=== PATIENT | male | born 1950 | race Two or more races ===

== ENCOUNTER 2018-11-29 01:39 | Inpatient (IN) | payer MEDICARE, MEDICAID ==
[~2018-11-29] VITALS: Ht 177.8 cm; Wt 96.6 kg
[2018-11-29] MEDS ORDERED: LISI10TA5 PO (01:57)
[2018-11-29] MEDS ORDERED: LEVE500T9 PO (01:57)
[2018-11-29] MEDS ORDERED: DONE5TAB7 PO (01:57)
[2018-11-29] MEDS ORDERED: MAGN400O21 PO (01:57)
[2018-11-29] MEDS ORDERED: ACET-868 PO (01:57)
[2018-11-29] MEDS ORDERED: DOCU100C36 PO (01:57)
--- NOTE | 2018-11-29 01:59 | NUR ---
IVORY, C/O "AGGRESSIVE WITH STAFF, THROWING CHAIRS AT STAFF" AOXA, -SI, -HI VSS AMBULATORY, PLACED ON ER BED 3, AWAITING FOR EVAL.
[2018-11-29 02:08] LABS: APPEARANCE,URINE Clear (CLEAR); BILIRUBIN,URINE Negative (NEGATIVE); BLOOD, URINE Moderate Ery/uL (NEGATIVE); COLOR,URINE Yellow (YELLOW); KETONES,URINE Negative (NEGATIVE); LEUKOCYTE ESTERASE ,URINE Small (NEGATIVE); NITRITE, URINE Negative (NEGATIVE); PROTEIN,URINE 30 mg/dl (NEGATIVE); UGLUCOSE Negative (NEGATIVE); UROBILINOGEN,URINE 0.2 EU/dL (0.2)
[2018-11-29 02:13] LABS: BASOPHILS % (AUTO) 0.4 % (0.0-2.0); HEMATOCRIT 39 % (39-51); HEMOGLOBIN 13.2 g/dL (13.5-17.5); LYMPHOCYTES # (AUTO) 2.5 /CMM (0.8-4.8); LYMPHOCYTES % (AUTO) 28.2 % (20.0-44.0); MEAN CORPUSCULAR HGB CONC 34 g/dl (31.0-36.0); MEAN CORPUSCULAR VOLUME 91 fL (80-96); MONOCYTES # (AUTO) 0.7 /CMM (0.1-1.30); MONOCYTES % (AUTO) 8.1 % (2.0-12.0); NEUTROPHILS # (AUTO) 5.4 /CMM (1.8-8.9); NEUTROPHILS % (AUTO) 61.3 % (43.0-81.0); PLATELET COUNT (AUTO) 259 /CMM (150-450); RED BLOOD CELL COUNT(AUTO) 4.22 MIL/uL (4.5-6.0); WHITE BLOOD COUNT (AUTO) 8.8 K/uL (4.3-11.0)
[2018-11-29 02:19] LABS: CALCIUM, SERUM 8.7 mg/dL (8.5-10.1); CARBON DIOXIDE 26 mmol/L (21-32); CHLORIDE 105 mmol/L (98-107); CREATININE 1.3 mg/dL (0.6-1.3); GLUCOSE 125 mg/dL (74-106); POTASSIUM 4.1 mmol/L (3.5-5.1); SODIUM SERUM 142 mmol/L (136-145); UREA NITROGEN, BLOOD 24 mg/dL (7-18)
[2018-11-29 02:20] LABS: BACTERIA,URINE Few /HPF (None Seen); CALCIUM OXALATE CRYSTALS,UR Moderate /HPF (None Seen); RBC,URINE 51-80 /HPF (0-2); SQUAMOUS EPITHELIAL CELL,UR Rare /HPF (None Seen); WBC,URINE 21-50 /HPF (0-3)
[2018-11-29 02:23] LABS: ACETAMINOPHEN 0 ug/ml (10-30); ALANINE AMINOTRANSFERASE 22 U/L (12-78); ALBUMIN 3.3 g/dL (3.4-5.0); ALCOHOL, BLOOD < 3 mg/dL (0-0); ALKALINE PHOSPHATASE 84 U/L (46-116); ASPARTATE AMINOTRANSFERASE 20 U/L (15-37); BILIRUBIN,DIRECT 0.1 mg/dL (0.0-0.2); BILIRUBIN,TOTAL 0.3 mg/dL (0.2-1.0); TOTAL PROTEIN, SERUM 6.5 g/dL (6.4-8.2)
--- NOTE | 2018-11-29 03:06 | NUR ---
PT ASLEEP IN BED,VSS, SAFETY PRECAUTION UNDER TAKEN, WILL CONT' TO MONITOR.
--- NOTE | 2018-11-29 04:40 | NUR ---
CALLED FOR REPORT, GIVEN TO [facility] CHARGE NURSE, PT GOING TO RM 214.
--- NOTE | 2018-11-29 05:52 | NUR ---
ADMISSION NOTES: ADMITTED THIS 72 Y/O MALE PATIENT ADMIT FROM [facility] ER/INTIALLY FROM [facility] , PT IS ON 5150 HOLD GRAVELY DISABLE , PER HOLD PT. DISORIENTED ,CONFUSED AND DISORGNIZED, PT. AGITAED NON COMPLY WITH CARE , UPON FACE TO FACE ASSESSMENT PATIENT IS A&O X ,1 DISORGNIZED ANXIOUS UNCOOPERTIVE, EASILY GETS AGITATED, PT. IS POOR HISTORIAN, POOR INSIGHT ,POOR JUDGEMENT , POOR HYGINE , PT. REFUSED TO TAKE SHOWER AT THIS TIME , AND PT. REFUSED TO SIGN ADMISSION PAPERS AND ID PICTURES TAKEN FOR CHART ,V/S WNL , AWARE AND NOTIFIED OF THE ADMISSION, PT. REFUSED SKIN ASSESSMENT AND REFUSED MRSA SWAB FROM NARES ,ENCOURAGED X3 STILL REFUSED, BELONGINGS CONTRABAND WERE DONE , NURSING ASSESSMENT DONE ,PT. RIGHTS DISCUSS BY DIRECTOR OF PAYROLL , PROVIDE THE PT. WITH HANDBOOK, AND MEDICATIONS GUIDE, ENVIRONMENTAL SAFETY CHECK DONE, ENCOURAGED PT. VERBALIZED ANY FEELING CONCERN TO STAFF, ORIENT TO UNIT POLICY, NO ACUTE DISTRESS NOTED,VITAL SIGNS WNL ,DENIES ANY PAIN AT THIS TIME ,WILL CONTINUE TO MONITOR FOR Q15 SAFETY AND BEHAVIOR.
[2018-11-29] MEDS ORDERED: ACETAMINOPHEN 325 MG TABLET PO PRN ×2 (06:00→13:30)
[2018-11-29] MEDS ORDERED: MAGNESIUM HYDROXIDE 30 ML UDC PO PRN ×2 (06:00→13:30)
[2018-11-29] MEDS ORDERED: MAG HYDROX/AL HYDROX/SIMETH 30 ML UDC PO PRN (06:00)
[2018-11-29] MEDS ORDERED: LORAZEPAM 0.5 MG TABLET PO PRN (06:00)
[2018-11-29 06:18] VITALS: BP 130/78
--- NOTE | 2018-11-29 06:49 | NUR ---
GPS RN NOTES : PT. REFUSED SKIN ASSESSMENT ,PT. REUSED TO CHECK BLOOD SUGAR FOR ADMISSION PROCESS, AND REFUSED MRSA NARES ,ENCOURAGE X3 , EXPLINED RISKS AND BENEFITS STILL REFUSED , ENDORSE TO DAY NURSE FOR CONTINUITY OF CARE,
--- NOTE | 2018-11-29 06:54 | NUR ---
GPS RN NOTES: CALLED AND NOTIFIED PT. FAMILY MEMBER AGAPITO DELEON # [phone].
[2018-11-29] MEDS ORDERED: INSU100I4 SQ (07:16)
[2018-11-29 08:00] VITALS: BP 117/78
--- NOTE | 2018-11-29 09:21 | NUR ---
WOUND CARE CONSULT: PT PRESENTS WITH RT ELBOW SKIN TEAR, PRESENT ON ADMISSION. PT DENIED NEED FOR FULL SKIN ASSESSMENT. PT IS CONTINENT AND AMBULATORY. WILL SEE PRN. RECOMMENDATIONS MADE FOR WOUND CARE. DISCUSSED WITH NURSING STAFF. IN AGREEMENT WITH PLAN OF CARE. Addendum: 11/29/18 at 0922 by RACHELLE PHAM WNDNU Amended: Links added.
[2018-11-29] MEDS ORDERED: Z GUARD REMEDY 2 OZ OINT TP PRN (09:30)
--- NOTE | 2018-11-29 10:29 | NUR ---
ARTURO contacted Kiya ([phone]) from [facility] and confirmed that the pt can return to the facility at the time of discharge.
--- NOTE | 2018-11-29 10:45 | NUR ---
SW called the pts daughter, Mary ([phone]), and left a voicemail stating that the SW would like to discuss the pts initial discharge plan and treatment plan. SW will attempt to call back.
--- NOTE | 2018-11-29 11:00 | NUR ---
Initial Discharge Plan: Pt currently resides at [facility] located at [address] [place] [address]; ([phone]). Per facility (Kiya), the pt can return to the facility. SW will work with the pt and the MD regarding appropriate discharge planning. SW will form a safe and proper discharge.
--- NOTE | 2018-11-29 11:10 | NUR ---
Pts daughter, Mary ([phone]), returned the call of the SW. SW informed the daughter that the pt can return to [facility] and she stated that she approves of the placement. SW also informed her about the average length of inpatient stay and the psychiatrist that the pt will be under the care of. SW informed the daughter that she would keep her updated on the discharge plan.
--- NOTE | 2018-11-29 13:00 | NUR ---
wd nurse in documented skin tear to rt. elbow.
[2018-11-29] MEDS: DIVALPROEX SODIUM 125 MG CAP.SPRINK PO SCH ×2 (14:10→18:00)
--- NOTE | 2018-11-29 14:35 | NUR ---
Group Note: Pt was encouraged to participate in group therapy at 11/29/18 at 1:30PM but the pt stated that he was not that interested and remained in his room.
--- NOTE | 2018-11-29 15:02 | NUR ---
photo taken of rt. elbow-dressing to site. refused to sign med papers.dr. mcintyre in to see pt. [facility] home assessment nurse contacted regarding med recon sheet and the fact that pt. is diabetic.
[2018-11-29 16:00] VITALS: BP 119/63
[2018-11-29] MEDS: DOCUSATE SODIUM 100 MG CAPSULE PO SCH (18:00)
[2018-11-29 20:00] VITALS: BP 114/82
[2018-11-29] MEDS: LEVETIRACETAM SOL (5 ML) 100 MG/ML UDC PO SCH (21:27)
[2018-11-29] MEDS: QUETIAPINE FUMARATE 25 MG TABLET PO SCH (21:27)
[2018-11-29] MEDS: DONEPEZIL 5 MG TABLET PO SCH (21:27)
--- NOTE | 2018-11-29 23:29 | NUR ---
Paged and spoke with Dr. tanna Deluna, Re: abnormal urine result. New order given for Keflex 500 mg po tid
[2018-11-30] MEDS: CEPHALEXIN MONOHYDRATE 500 MG CAPSULE PO SCH ×4 (00:15→18:04)
[2018-11-30 07:19] LABS: BASOPHILS % (AUTO) 0.4 % (0.0-2.0); EOSINOPHILS % (AUTO) 2.3 % (0.0-6.0); HEMATOCRIT 41 % (39-51); LYMPHOCYTES # (AUTO) 2.1 /CMM (0.8-4.8); LYMPHOCYTES % (AUTO) 36.4 % (20.0-44.0); MEAN CORPUSCULAR HGB CONC 34 g/dl (31.0-36.0); MEAN CORPUSCULAR VOLUME 90 fL (80-96); MONOCYTES # (AUTO) 0.4 /CMM (0.1-1.30); MONOCYTES % (AUTO) 6.8 % (2.0-12.0); NEUTROPHILS # (AUTO) 3.1 /CMM (1.8-8.9); NEUTROPHILS % (AUTO) 54.1 % (43.0-81.0); PLATELET COUNT (AUTO) 253 /CMM (150-450); RED BLOOD CELL COUNT(AUTO) 4.52 MIL/uL (4.5-6.0); WHITE BLOOD COUNT (AUTO) 5.7 K/uL (4.3-11.0)
[2018-11-30 07:33] LABS: ALBUMIN 3.1 g/dL (3.4-5.0); BILIRUBIN,TOTAL 0.4 mg/dL (0.2-1.0); CALCIUM, SERUM 8.3 mg/dL (8.5-10.1); CREATININE 1.1 mg/dL (0.6-1.3); POTASSIUM 3.9 mmol/L (3.5-5.1); TOTAL PROTEIN, SERUM 6.5 g/dL (6.4-8.2)
[2018-11-30 07:44] LABS: CHOLESTEROL 151 mg/dL (<200); HDL CHOLESTEROL 38 mg/dL (40-60); LDL 93 mg/dL (0-99); TRIGLYCERIDES 114 mg/dL (30-150)
[2018-11-30 08:00] VITALS: BP 119/66
[2018-11-30] MEDS: DIVALPROEX SODIUM 125 MG CAP.SPRINK PO SCH ×3 (08:59→18:04)
[2018-11-30] MEDS: LEVETIRACETAM SOL (5 ML) 100 MG/ML UDC PO SCH ×2 (08:59→21:00)
[2018-11-30] MEDS: DOCUSATE SODIUM 100 MG CAPSULE PO SCH ×2 (08:59→18:05)
[2018-11-30] MEDS: LISINOPRIL (10MG) 10 MG TABLET PO SCH (08:59)
--- NOTE | 2018-11-30 14:37 | NUR ---
more isolative today than yesterday.
[2018-11-30 16:00] VITALS: BP 131/79
[2018-11-30 19:39] VITALS: BP 100/59
[2018-11-30] MEDS: QUETIAPINE FUMARATE 25 MG TABLET PO SCH (20:00)
--- NOTE | 2018-11-30 20:42 | NUR ---
GPS RN NOTE: RECEIVED HGBA1C RESULT OF 7.0, NOTIFIED DR. KELLER WITH ORDER GIVEN NOTED AND CARRIED OUT.
[2018-11-30] MEDS ORDERED: DEXTROSE 50%-WATER 50 ML DISP.SYRIN IV PRN (21:00)
[2018-11-30] MEDS: DONEPEZIL 5 MG TABLET PO SCH (21:11)
--- NOTE | 2018-11-30 21:13 | NUR ---
GPS RN NOTE: PATIENT REFUSED PM MEDICATIONS, EXPLAINED THE RISK AND BENEFITS X 3 ATTEMPTS, PER PATIENT "I DONT REMEMBER TAKING THAT MEDICATION, SO I REFUSED" PATIENT STARTED TO GET AGITATED, REDIRECTED THE PATIENT, PATIENT CALMED DOWN BUT STILL REFUSED MEDICATIONS. WILL CONTINUE TO MONITOR
[2018-11-30] MEDS: BLOOD SUGAR DIAGNOSTIC 1 EACH STRIP IN SCH (21:16)
[2018-12-01 08:00] VITALS: BP 119/72
[2018-12-01] MEDS: BLOOD SUGAR DIAGNOSTIC 1 EACH STRIP IN SCH ×4 (08:26→21:19)
[2018-12-01] MEDS: DOCUSATE SODIUM 100 MG CAPSULE PO SCH ×2 (08:35→17:54)
[2018-12-01] MEDS: CEPHALEXIN MONOHYDRATE 500 MG CAPSULE PO SCH ×3 (08:35→17:54)
[2018-12-01] MEDS: LISINOPRIL (10MG) 10 MG TABLET PO SCH (08:35)
[2018-12-01] MEDS: DIVALPROEX SODIUM 125 MG CAP.SPRINK PO SCH ×3 (08:35→17:54)
[2018-12-01] MEDS: LEVETIRACETAM SOL (5 ML) 100 MG/ML UDC PO SCH ×2 (08:36→21:00)
[2018-12-01 13:00] VITALS: BP 110/56
[2018-12-01] MEDS: QUETIAPINE FUMARATE 25 MG TABLET PO SCH (19:43)
[2018-12-01 20:00] VITALS: BP 119/72
[2018-12-01] MEDS: INSULIN REGULAR, HUMAN 100 UNIT/ML 3 ML VIAL SQ PRN (21:19)
[2018-12-01] MEDS: DONEPEZIL 5 MG TABLET PO SCH (21:19)
--- NOTE | 2018-12-01 21:22 | NUR ---
PT. REFUSED PM MEDICATIONS: KEPPRA, AND ARICEPT. RISKS AND BENEFITS MADE AWARE. ENCOURAGED MEDICATIONS X3, PT STILL REFUSED. WILL CONT TO MONITOR.
--- NOTE | 2018-12-01 21:52 | NUR ---
ATTEMPTED TO TAKE PROGRESS PHOTOS OF BODY CHECK. PT REFUSED ASSESSMENT. RISKS AND BENEFITS MADE AWARE. VERBALIZATION OF UNDERSTANDING. WILL CONT. TO MONITOR.
[2018-12-02 08:00] VITALS: BP 104/66
[2018-12-02] MEDS: BLOOD SUGAR DIAGNOSTIC 1 EACH STRIP IN SCH ×4 (08:18→22:00)
[2018-12-02] MEDS: DOCUSATE SODIUM 100 MG CAPSULE PO SCH ×2 (08:19→16:43)
[2018-12-02] MEDS: DIVALPROEX SODIUM 125 MG CAP.SPRINK PO SCH ×3 (08:20→16:43)
[2018-12-02] MEDS: CEPHALEXIN MONOHYDRATE 500 MG CAPSULE PO SCH ×3 (08:20→16:43)
[2018-12-02] MEDS: LEVETIRACETAM SOL (5 ML) 100 MG/ML UDC PO SCH ×2 (08:21→21:14)
[2018-12-02] MEDS: LISINOPRIL (10MG) 10 MG TABLET PO SCH (08:23)
[2018-12-02] MEDS: INSULIN REGULAR, HUMAN 100 UNIT/ML 3 ML VIAL SQ PRN ×2 (12:18→23:05)
[2018-12-02 16:00] VITALS: BP 120/64
--- NOTE | 2018-12-02 16:30 | NUR ---
Group note: Pt attended a group session on 12/02/18 at 3PM discussing depression and how it has impacted their life. S: Pt stated, My feelings of depression come and they go but you just have to keep moving on and keep living. O: Pt was present during the group session and was engaged. Pt appeared to be in a euthymic mood and presented with a calm affect. Pt maintained appropriate eye contact and had an appropriate tone of voice. A: Pt expressed that he does not think that depression needs to affect someones life completely because it can be managed and dealt with for a while and it does not need to be a constant. Pt expressed that he believes help is available and that people have to use it to stay in a place where they can manage their lives. P: Pt will continue milieu treatment and medication stabilization.
[2018-12-02 19:47] VITALS: BP 128/71
[2018-12-02] MEDS: QUETIAPINE FUMARATE 25 MG TABLET PO SCH (21:14)
[2018-12-02] MEDS: DONEPEZIL 5 MG TABLET PO SCH (21:14)
[2018-12-02] MEDS: TEMAZEPAM 7.5 MG CAPSULE PO PRN (21:14)
[2018-12-03 08:00] VITALS: BP 110/53
[2018-12-03] MEDS: BLOOD SUGAR DIAGNOSTIC 1 EACH STRIP IN SCH ×4 (08:21→22:09)
[2018-12-03] MEDS: LISINOPRIL (10MG) 10 MG TABLET PO SCH (09:00)
[2018-12-03] MEDS: CEPHALEXIN MONOHYDRATE 500 MG CAPSULE PO SCH ×3 (09:08→17:19)
[2018-12-03] MEDS: DOCUSATE SODIUM 100 MG CAPSULE PO SCH ×3 (09:08→17:19)
[2018-12-03] MEDS: LEVETIRACETAM SOL (5 ML) 100 MG/ML UDC PO SCH ×2 (09:08→21:34)
[2018-12-03] MEDS: DIVALPROEX SODIUM 125 MG CAP.SPRINK PO SCH ×4 (09:08→17:19)
[2018-12-03] MEDS: INSULIN REGULAR, HUMAN 100 UNIT/ML 3 ML VIAL SQ PRN ×3 (09:20→17:40)
--- NOTE | 2018-12-03 12:16 | NUR ---
SW called the pts daughter, Mary ([phone]), and left her a voicemail that stated that there is no discharge date yet.
--- NOTE | 2018-12-03 15:59 | NUR ---
CONFUSED AND GETTING TURNED AROUND ON UNIT. ASKED SEVERAL TIMES WHEN HE CAN CHECK OUT.
[2018-12-03 16:00] VITALS: BP 124/73
--- NOTE | 2018-12-03 16:53 | NUR ---
Group note: Pt attended a group session on 12/03/18 at 3PM discussing the importance of support systems and how they have impacted their lives. Pt was engaged and attentive but he did not participate. Pt did not feel comfortable sharing but listened to what his peers had to say.
--- NOTE | 2018-12-03 17:30 | NUR ---
NAIF CASH. [facility].
[2018-12-03 20:23] VITALS: BP 116/65
[2018-12-03] MEDS: TEMAZEPAM 7.5 MG CAPSULE PO PRN (21:34)
[2018-12-03] MEDS: QUETIAPINE FUMARATE 25 MG TABLET PO SCH (21:34)
[2018-12-03] MEDS: DONEPEZIL 5 MG TABLET PO SCH (21:34)
[2018-12-04 08:00] VITALS: BP 132/76
[2018-12-04] MEDS: BLOOD SUGAR DIAGNOSTIC 1 EACH STRIP IN SCH ×4 (08:17→21:15)
[2018-12-04] MEDS: INSULIN REGULAR, HUMAN 100 UNIT/ML 3 ML VIAL SQ PRN ×4 (08:43→21:17)
[2018-12-04] MEDS: CEPHALEXIN MONOHYDRATE 500 MG CAPSULE PO SCH ×3 (09:33→17:26)
[2018-12-04] MEDS: DIVALPROEX SODIUM 125 MG CAP.SPRINK PO SCH ×3 (09:33→17:26)
[2018-12-04] MEDS: LEVETIRACETAM SOL (5 ML) 100 MG/ML UDC PO SCH ×2 (09:33→21:15)
[2018-12-04] MEDS: LISINOPRIL (10MG) 10 MG TABLET PO SCH (09:33)
[2018-12-04] MEDS: DOCUSATE SODIUM 100 MG CAPSULE PO SCH ×2 (11:16→17:26)
--- NOTE | 2018-12-04 11:27 | NUR ---
alerted oswaldo schumacher fly worker that pt. with nasal congestion and catching a cold in case he wants to order something.
--- NOTE | 2018-12-04 12:20 | NUR ---
Supportive Counseling: SW and the pts psychiatrist, Dr. Painting, spoke to the pt about his discharge plan. He became agitated and distressed because he stated that he is not going to return to the facility because he wants to return to his apartment. He stated that he can take care of himself and that he does not need his family's input or assistance. SW and the pts psychiatrist explained that the pt cannot take care of himself and he stated that he disagreed. SW and the pt's psychiatrist stated that they would work with him to stabilize him further and from the nursing facility he can find an apartment if appropriate.
--- NOTE | 2018-12-04 14:46 | NUR ---
GROUP NOTE: SW prompted pt to attend group but pt refused, pt is cognitively impaired and has moments of lability.
[2018-12-04 16:00] VITALS: BP 112/56
--- NOTE | 2018-12-04 18:00 | NUR ---
wanders about unit,cont. to be confused about whereabouts.
[2018-12-04 20:00] VITALS: BP 145/90
[2018-12-04] MEDS: QUETIAPINE FUMARATE 25 MG TABLET PO SCH (20:21)
[2018-12-04] MEDS: DONEPEZIL 5 MG TABLET PO SCH (21:15)
[2018-12-05] MEDS: BLOOD SUGAR DIAGNOSTIC 1 EACH STRIP IN SCH ×4 (07:24→21:21)
[2018-12-05 08:00] VITALS: BP 107/68
[2018-12-05] MEDS: CEPHALEXIN MONOHYDRATE 500 MG CAPSULE PO SCH ×3 (08:17→17:27)
[2018-12-05] MEDS: DOCUSATE SODIUM 100 MG CAPSULE PO SCH ×2 (08:17→17:27)
[2018-12-05] MEDS: DIVALPROEX SODIUM 125 MG CAP.SPRINK PO SCH ×3 (08:17→17:26)
[2018-12-05] MEDS: LEVETIRACETAM SOL (5 ML) 100 MG/ML UDC PO SCH ×2 (08:19→21:20)
[2018-12-05] MEDS: LISINOPRIL (10MG) 10 MG TABLET PO SCH (08:21)
[2018-12-05] MEDS: INSULIN REGULAR, HUMAN 100 UNIT/ML 3 ML VIAL SQ PRN ×3 (11:39→21:27)
[2018-12-05 16:00] VITALS: BP 113/67
--- NOTE | 2018-12-05 16:32 | NUR ---
Group Note: Pt attended a group session on 12/05/18 at 2PM discussing goals for when they are in the hospital and goals for once they are discharged. Pt was engaged and was actively listening to his peers discuss the topic of the group. When the SW encouraged him to speak, he stated, "It is just good to hear what everyone else has to say. I just enjoy listening to people talk about their life. I do not need to say anything else."
[2018-12-05] MEDS ORDERED: MENTHOL/CETYLPYRD (CEPACOL) 1 LOZ LOZENGE PO PRN (18:00)
[2018-12-05 20:00] VITALS: BP 140/91
[2018-12-05] MEDS: DONEPEZIL 5 MG TABLET PO SCH (21:21)
[2018-12-05] MEDS: QUETIAPINE FUMARATE 25 MG TABLET PO SCH (21:21)
[2018-12-06] MEDS: BLOOD SUGAR DIAGNOSTIC 1 EACH STRIP IN SCH ×4 (07:32→21:56)
[2018-12-06 08:00] VITALS: BP 119/71
[2018-12-06] MEDS: CEPHALEXIN MONOHYDRATE 500 MG CAPSULE PO SCH ×3 (08:38→16:41)
[2018-12-06] MEDS: LEVETIRACETAM SOL (5 ML) 100 MG/ML UDC PO SCH ×2 (08:38→21:47)
[2018-12-06] MEDS: DOCUSATE SODIUM 100 MG CAPSULE PO SCH ×2 (08:38→16:41)
[2018-12-06] MEDS: DIVALPROEX SODIUM 125 MG CAP.SPRINK PO SCH ×4 (08:38→21:48)
[2018-12-06] MEDS: LISINOPRIL (10MG) 10 MG TABLET PO SCH (08:42)
[2018-12-06] MEDS: INSULIN REGULAR, HUMAN 100 UNIT/ML 3 ML VIAL SQ PRN ×3 (11:55→22:01)
--- NOTE | 2018-12-06 14:40 | NUR ---
ARTURO called the pts daughter, Mary ([phone]), and informed her that the pt does not have a discharge date as of right now because he does continue to get agitated when he is informed about his discharge plan is to return to [facility]. ARTURO informed her that apart from that, the pt is presenting well in groups and is compliant with his medications.
[2018-12-06 16:00] VITALS: BP 116/70
--- NOTE | 2018-12-06 17:03 | NUR ---
Group note: Pt was encouraged to join group therapy session on 12/06/18 at 2:00pm. Pt. unable to attend group.
--- NOTE | 2018-12-06 19:30 | NUR ---
GPS RN NOTE, RECEIVED PATIENT AWAKE AND IN BED, NO S/S OR COMPLAINTS OF PAIN AT THIS TIME. PATIENT IS DISPLAYING NO S/S OF APPARENT DISTRESS AT THIS TIME. PATIENT BREATHING IS UNLABORED WITH EQUAL RISE AND FALL OF THE CHEST. PATIENT IS ALERT AND ORIENTED X 1-2 ON ROOM AIR WITH A SPO2 OF 95 %. PATIENT IS MED COMPLAINT, DISORGANIZED, CONFUSED AT TIMES, COOPERATIVE, ANXIOUS, AND NEEDS REORIENTATION. PATIENT DENIES SUICIDE AND HOMICIDAL IDEATIONS AT THIS TIME. PATIENT ASSISTED WITH TURNING AND REPOSITIONING Q2HR AND PRN FOR COMFORT AND CIRCULATION. PATIENT HAS NO NEEDS AT THIS TIME. PATIENT EDUCATED ON THE USE OF THE CALL JOHNSON. PATIENT BED SIDE RAILS ARE UP X 2 FOR SAFETY, BED IS LOCKED, AND LOW WILL CONTINUE TO MONITOR AND MAINTAIN SAFETY.
[2018-12-06 19:54] VITALS: BP 123/77
[2018-12-06] MEDS: BENZTROPINE MESYLATE (1 MG) 1 MG TABLET PO SCH (21:48)
[2018-12-06] MEDS: DONEPEZIL 5 MG TABLET PO SCH (21:48)
--- NOTE | 2018-12-06 21:55 | NUR ---
GPS RN NOTE, PERFORMED ACCU CHECK ON PATIENT WITH A BLOOD SUGAR RESULT OF 160. GAVE 2 UNITS OF REGULAR INSULIN PER SLIDING SCALE. WILL CONTINUE TO MONITOR THIS PATIENT.
[2018-12-06] MEDS ORDERED: risperiDONE 1 MG TABLET PO SCH (22:00)
[2018-12-07] MEDS: BLOOD SUGAR DIAGNOSTIC 1 EACH STRIP IN SCH ×4 (07:28→21:24)
[2018-12-07 08:00] VITALS: BP 117/70
[2018-12-07] MEDS: DOCUSATE SODIUM 100 MG CAPSULE PO SCH ×2 (08:27→16:36)
[2018-12-07] MEDS: CEPHALEXIN MONOHYDRATE 500 MG CAPSULE PO SCH ×3 (08:27→16:35)
[2018-12-07] MEDS: INSULIN REGULAR, HUMAN 100 UNIT/ML 3 ML VIAL SQ PRN ×4 (08:27→21:28)
[2018-12-07] MEDS: DIVALPROEX SODIUM 125 MG CAP.SPRINK PO SCH ×4 (08:27→21:21)
[2018-12-07] MEDS: LISINOPRIL (10MG) 10 MG TABLET PO SCH (08:28)
[2018-12-07] MEDS: LEVETIRACETAM SOL (5 ML) 100 MG/ML UDC PO SCH ×2 (08:28→21:28)
[2018-12-07] MEDS: risperiDONE 1 MG TABLET PO SCH ×2 (10:38→21:23)
[2018-12-07 16:00] VITALS: BP 120/74
[2018-12-07 19:35] VITALS: BP 124/72
[2018-12-07] MEDS: BENZTROPINE MESYLATE (1 MG) 1 MG TABLET PO SCH (21:22)
[2018-12-07] MEDS: DONEPEZIL 5 MG TABLET PO SCH (21:23)
--- NOTE | 2018-12-07 21:24 | NUR ---
GPS RN NOTE, PERFORMED ACCU CHECK ON PATIENT WITH A BLOOD SUGAR RESULT OF 172. GAVE 3 UNITS OF REGULAR INSULIN PER SLIDING SCALE. WILL CONTINUE TO MONITOR THIS PATIENT.
[2018-12-08 08:00] VITALS: BP 107/70
[2018-12-08] MEDS: BLOOD SUGAR DIAGNOSTIC 1 EACH STRIP IN SCH ×4 (08:51→21:33)
[2018-12-08] MEDS: CEPHALEXIN MONOHYDRATE 500 MG CAPSULE PO SCH ×2 (08:52→12:23)
[2018-12-08] MEDS: DIVALPROEX SODIUM 125 MG CAP.SPRINK PO SCH ×4 (08:52→21:32)
[2018-12-08] MEDS: DOCUSATE SODIUM 100 MG CAPSULE PO SCH ×2 (08:52→17:13)
[2018-12-08] MEDS: LEVETIRACETAM SOL (5 ML) 100 MG/ML UDC PO SCH ×2 (08:52→21:33)
[2018-12-08] MEDS: LISINOPRIL (10MG) 10 MG TABLET PO SCH (08:53)
[2018-12-08] MEDS: risperiDONE 1 MG TABLET PO SCH ×2 (08:55→21:38)
[2018-12-08] MEDS: INSULIN REGULAR, HUMAN 100 UNIT/ML 3 ML VIAL SQ PRN ×2 (12:30→18:20)
[2018-12-08 16:00] VITALS: BP 112/75
[2018-12-08 21:01] VITALS: BP 118/75
[2018-12-08] MEDS: DONEPEZIL 5 MG TABLET PO SCH (21:32)
[2018-12-08] MEDS: BENZTROPINE MESYLATE (1 MG) 1 MG TABLET PO SCH (21:33)
--- NOTE | 2018-12-08 22:00 | NUR ---
PATIENT REFUSED HS SLIDING SCALE INSULIN DESPITE EXPLANATION OF RISKS AND BENEFITS. BS 183. WILL CONTINUE TO MONITOR.
[2018-12-09 08:00] VITALS: BP 106/74
[2018-12-09] MEDS: LISINOPRIL (10MG) 10 MG TABLET PO SCH ×2 (09:00→09:22)
[2018-12-09] MEDS: LEVETIRACETAM SOL (5 ML) 100 MG/ML UDC PO SCH ×2 (09:09→21:07)
[2018-12-09] MEDS: DOCUSATE SODIUM 100 MG CAPSULE PO SCH ×2 (09:10→17:34)
[2018-12-09] MEDS: DIVALPROEX SODIUM 125 MG CAP.SPRINK PO SCH ×4 (09:10→20:58)
[2018-12-09] MEDS: risperiDONE 1 MG TABLET PO SCH ×2 (09:10→21:07)
[2018-12-09] MEDS: BLOOD SUGAR DIAGNOSTIC 1 EACH STRIP IN SCH ×4 (09:11→21:13)
[2018-12-09] MEDS: INSULIN REGULAR, HUMAN 100 UNIT/ML 3 ML VIAL SQ PRN ×3 (12:27→21:16)
--- NOTE | 2018-12-09 15:02 | NUR ---
GROUP NOTE: Pt was encouraged to participate in group therapy at 12/09/18 at 2:00PM but the pt stated that he was not that interested and refused to attend.
[2018-12-09 16:00] VITALS: BP 131/75
[2018-12-09 20:13] VITALS: BP 111/69
[2018-12-09] MEDS: BENZTROPINE MESYLATE (1 MG) 1 MG TABLET PO SCH (21:07)
[2018-12-09] MEDS: DONEPEZIL 5 MG TABLET PO SCH (21:07)
[2018-12-09] MEDS: TEMAZEPAM 7.5 MG CAPSULE PO PRN (21:08)
[2018-12-10 08:00] VITALS: BP 120/75
[2018-12-10] MEDS: BLOOD SUGAR DIAGNOSTIC 1 EACH STRIP IN SCH ×4 (08:06→21:52)
[2018-12-10] MEDS: DIVALPROEX SODIUM 125 MG CAP.SPRINK PO SCH ×3 (08:42→17:26)
[2018-12-10] MEDS: LEVETIRACETAM SOL (5 ML) 100 MG/ML UDC PO SCH ×2 (08:43→21:52)
[2018-12-10] MEDS: risperiDONE 1 MG TABLET PO SCH ×2 (08:43→21:51)
[2018-12-10] MEDS: DOCUSATE SODIUM 100 MG CAPSULE PO SCH ×2 (08:43→17:27)
[2018-12-10] MEDS: INSULIN REGULAR, HUMAN 100 UNIT/ML 3 ML VIAL SQ PRN (12:17)
[2018-12-10] MEDS: METFORMIN 500 MG TABLET PO SCH ×2 (15:00→17:27)
--- NOTE | 2018-12-10 15:10 | NUR ---
Group Note: Pt attended group therapy on 12/10/18 at 2pm discussing the topic of their goals in areas of both their hospitalization and their personal life. Pt did not participate in the topic but was engaged with his peers and was attentive to what was being said during the group.
[2018-12-10 16:00] VITALS: BP 135/73
[2018-12-10] MEDS: LISINOPRIL (10MG) 10 MG TABLET PO SCH (17:27)
[2018-12-10 20:23] VITALS: BP 119/68
[2018-12-10] MEDS: TEMAZEPAM 7.5 MG CAPSULE PO PRN (21:51)
[2018-12-10] MEDS: DONEPEZIL 5 MG TABLET PO SCH (21:51)
[2018-12-10] MEDS: BENZTROPINE MESYLATE (1 MG) 1 MG TABLET PO SCH (21:51)
[2018-12-10] MEDS ORDERED: DIVALPROEX SODIUM 125 MG CAP.SPRINK PO SCH (22:00)
[2018-12-11 08:00] VITALS: BP 107/67
[2018-12-11] MEDS: LEVETIRACETAM SOL (5 ML) 100 MG/ML UDC PO SCH (08:10)
[2018-12-11] MEDS: DOCUSATE SODIUM 100 MG CAPSULE PO SCH (08:11)
[2018-12-11] MEDS: METFORMIN 500 MG TABLET PO SCH (08:11)
[2018-12-11] MEDS: risperiDONE 1 MG TABLET PO SCH (08:11)
[2018-12-11] MEDS: DIVALPROEX SODIUM 125 MG CAP.SPRINK PO SCH ×2 (08:12→14:19)
[2018-12-11] MEDS: BLOOD SUGAR DIAGNOSTIC 1 EACH STRIP IN SCH ×2 (08:12→14:19)
[2018-12-11 08:14] VITALS: BP 107/67
[2018-12-11] MEDS: LISINOPRIL (10MG) 10 MG TABLET PO SCH (08:14)
--- NOTE | 2018-12-11 08:56 | NUR ---
ARTURO called the pts daughter, Mary ([phone]), and informed her that the pt is going to be discharged back to [facility] today due to the pt being at his baseline. ARTURO went over the medications with the pts daughter and informed her that Dr. Painting would continue as his psychiatrist at the facility.
--- NOTE | 2018-12-11 08:57 | NUR ---
ARTURO faxed updated clinical notes to [facility] with attention to Kiya to the fax number: [phone].
--- NOTE | 2018-12-11 15:11 | NUR ---
VAULT TELLER NOTES PATIENT DISCHARGE AT THIS TIME GOING BACK TO SNF. PATIENT A/O X1/2,REDIRECTABLE, FORGETFUL. PATIENT STABLE, REFUSED PAIN, V/S STABLE, MED COMPLIANT, NO RESPIRATORY DISTRESS. PATIENT DENIED SI/HI/AVH. MED RECONCILIATION AND DISCHARGE ORDER REVIEWED AND EXPLAINED TO. REPORT GIVEN SNF RN. RN VERBALIZED UNDERSTANDING. BELONGING RETURNED TO THE PATIENT. PATIENT REFUSED SIGN PAPERWORK. PICTURE TAKEN. PATIENT WILL FOLLOW SNF BLOCK TRADER, AND PSYCHIATRIST. DAUGHTER AWARE OF DISCHARGE PLANING. PATIENT GUM MIXER BY AMBULANCE.
--- NOTE | 2018-12-11 16:26 | NUR ---
Discharge Note: Pt was discharged to [facility] located at [address] [place] [address] ([phone]). Pt was transported via [facility] at 3pm. Pts daughter, Mary ([phone]), was aware of the discharge. Upon discharge, the pt appeared to be in a euthymic mood and presented with a distressed affect. Pt denied both suicidal and homicidal ideation as well as auditory and visual hallucinations. Pt will be under the care of his psychiatrist, Dr. Painting, located at [address] [address], [place] [address]; and his precision instrument maker, Dr. Humphrey, located at [address] [facility] [address] [address]; .
== END 2018-12-11 15:15 | DRG 885 ==
LOC: ER 01:43 → GPS 04:25
PROVIDERS: ADMIT Psychiatry & Neurology Psychosomatic Medicine; ATTEND Internal Medicine
DX: F25.0 Schizoaffective disorder, bipolar type (principal); F01.51 Vascular dementia, unspecified severity, with behavioral disturbance; E44.1 Mild protein-calorie malnutrition; F02.81 Dementia in other diseases classified elsewhere, unspecified severity, with behavioral disturbance; F29 Unspecified psychosis not due to a substance or known physiological condition; F41.9 Anxiety disorder, unspecified; E11.9 Type 2 diabetes mellitus without complications; Z79.899 Other long term (current) drug therapy; F32.9 Major depressive disorder, single episode, unspecified; G30.9 Alzheimer's disease, unspecified; G40.909 Epilepsy, unspecified, not intractable, without status epilepticus; R05 Cough; I10 Essential (primary) hypertension
CPT/HCPCS: 36415; 80048-TC; 80053-TC; 80061-TC; 80076-TC; 80164-TC; 80305; 81000-TC; 82962-TC; 85025-TC; 87086-TC; A6402; G0480; J1815; J1953

== ENCOUNTER 2019-01-23 00:25 | Inpatient (IN) | payer MEDICAID, MEDICARE ==
[~2019-01-23] VITALS: Ht 172.7 cm; Wt 96.6 kg
[~2019-01-23 00:25] MED LIST: ACET-868 PO; DOCU100C36 PO; DONE5TAB7 PO; LEVE500T9 PO; LISI10TA5 PO; MAGN400O21 PO
--- NOTE | 2019-01-23 00:33 | NUR ---
TO BED 1 BIB PRIVATE AMBULANCE FOR PSYCH EVAL FROM [facility]. PER EMT TRANSPORT PT PHYSICALLY AGGRESSIVE TO STAFF MEMBER OF THE FACILITY. PT AAOX2 NO ACUTE DISTRESS NOTED, RESP EVEN AND UNLABORED. RECEIVED PT CALM AND COOPERATIVE AT THIS TIME. ER MD AT BEDSIDE TO EVAL PT WITH ORDERS RECEIVED.
[2019-01-23 01:35] LABS: BASOPHILS % (AUTO) 0.2 % (0.0-2.0); EOSINOPHILS % (AUTO) 4.3 % (0.0-6.0); HEMATOCRIT 37 % (39-51); HEMOGLOBIN 12.8 g/dL (13.5-17.5); LYMPHOCYTES # (AUTO) 2.4 /CMM (0.8-4.8); LYMPHOCYTES % (AUTO) 28.9 % (20.0-44.0); MEAN CORPUSCULAR HGB CONC 35 g/dl (31.0-36.0); MEAN CORPUSCULAR VOLUME 91 fL (80-96); MONOCYTES # (AUTO) 0.6 /CMM (0.1-1.30); MONOCYTES % (AUTO) 7.8 % (2.0-12.0); NEUTROPHILS # (AUTO) 4.9 /CMM (1.8-8.9); NEUTROPHILS % (AUTO) 58.8 % (43.0-81.0); PLATELET COUNT (AUTO) 193 /CMM (150-450); RED BLOOD CELL COUNT(AUTO) 4.04 MIL/uL (4.5-6.0); WHITE BLOOD COUNT (AUTO) 8.2 K/uL (4.3-11.0)
[2019-01-23 01:41] LABS: CALCIUM, SERUM 8.3 mg/dL (8.5-10.1); CARBON DIOXIDE 29 mmol/L (21-32); CHLORIDE 103 mmol/L (98-107); CREATININE 1.4 mg/dL (0.6-1.3); GLUCOSE 111 mg/dL (74-106); SODIUM SERUM 139 mmol/L (136-145); UREA NITROGEN, BLOOD 23 mg/dL (7-18)
[2019-01-23 01:47] LABS: ACETAMINOPHEN 2 ug/ml (10-30); ALANINE AMINOTRANSFERASE 27 U/L (12-78); ALBUMIN 2.9 g/dL (3.4-5.0); ALCOHOL, BLOOD < 3 mg/dL (0-0); ALKALINE PHOSPHATASE 68 U/L (46-116); ASPARTATE AMINOTRANSFERASE 19 U/L (15-37); BILIRUBIN,DIRECT 0.1 mg/dL (0.0-0.2); BILIRUBIN,TOTAL 0.2 mg/dL (0.2-1.0); TOTAL PROTEIN, SERUM 6.1 g/dL (6.4-8.2)
[2019-01-23 01:49] LABS: SALICYLATE 1.1 mg/dL (2.8-20.0)
--- NOTE | 2019-01-23 01:52 | NUR ---
urine sample collected and sent to lab.
[2019-01-23 02:00] LABS: APPEARANCE,URINE Clear (CLEAR); BILIRUBIN,URINE Negative (NEGATIVE); BLOOD, URINE Small Ery/uL (NEGATIVE); COLOR,URINE Yellow (YELLOW); KETONES,URINE Negative (NEGATIVE); LEUKOCYTE ESTERASE ,URINE Small (NEGATIVE); NITRITE, URINE Negative (NEGATIVE); PROTEIN,URINE Negative (NEGATIVE); UGLUCOSE Negative (NEGATIVE); UROBILINOGEN,URINE 0.2 EU/dL (0.2)
[2019-01-23 02:21] LABS: BACTERIA,URINE Few /HPF (None Seen); SQUAMOUS EPITHELIAL CELL,UR Rare /HPF (None Seen)
--- NOTE | 2019-01-23 03:30 | NUR ---
REPORT CALLED TO SHERIF CARDENAS.
[2019-01-23] MEDS ORDERED: ACETAMINOPHEN 325 MG TABLET PO PRN (04:30)
[2019-01-23] MEDS ORDERED: MAG HYDROX/AL HYDROX/SIMETH 30 ML UDC PO PRN (04:30)
[2019-01-23] MEDS ORDERED: TEMAZEPAM 7.5 MG CAPSULE PO PRN (04:30)
[2019-01-23] MEDS ORDERED: MAGNESIUM HYDROXIDE 30 ML UDC PO PRN ×2 (04:30→10:30)
[2019-01-23 05:00] VITALS: BP 98/46
[2019-01-23] MEDS ORDERED: BENZ0.5T43 PO (05:27)
[2019-01-23] MEDS ORDERED: METF-440 PO (05:27)
[2019-01-23] MEDS ORDERED: RISP0.5T5 PO (05:27)
[2019-01-23] MEDS ORDERED: DIVA250T PO ×2 (05:27)
--- NOTE | 2019-01-23 05:43 | NUR ---
GPS RN NOTES: ADMITTED A 68 YO -[place]AN[place] MALE FROM [facility] ON 5150 HOLD FOR DANGER TO OTHERS AND GRAVE DISABILITY. PER HOLD, THE PATIENT THINKS HE IS PART OF THE STAFF AT [facility], NON COMPLIANT,KICKING STAFF, PUNCHING DOORS, DELUSIONAL, AGGRESSIVE, WANDERING FROM ROOM TO ROOM. PATIENT IS UNDER THE CARE OF DR. GRIMM AND OLESYA MEYER MEDICAL CLOTHING WORKER FOR [facility]. UPON FACE TO FACE ASSESSMENT, PATIENT PRESENTS ALERT AND ORIENTED X 1, NAME ONLY. TALKS MINIMALLY, UNKEMPT, DISHEVELED, LOOKS AT THE STAFF IN A BLANK STARE,. REALITY ORIENTATION DONE. CHANGED PATIENT INTO A CLEAN GOWN. ORIENTATION TO UNIT, STAFF AND POLICIES. BELONGINGS AND CONTRABAND CHECKED.SKIN AND BODY ASSESSMENT DONE WITH GUILLERMO HAYNES AND MARIBELL LI. PICTURE TAKEN AND PLACED IN CHART. WOUND CONSULT TRIGGERED FOR WOUND ON RIGHT KNEE ARE. Q15 MIN CHECKS STARTED. CARE PLAN INITIATED. PATIENT WAS UNABLE TO SIGNS ADMISSION PAPERS HE WAS IN DEEP SLEEP WHEN HE CAME TO THE UNIT. INFORMED OLESYA MEYER FOR MED RECON OF PATIENT-STATED THE SAID MED RECON WILL BE DONE BY DAY SHIFT EPIC ACCOUNT SUPPORT MANAGER. PATIENT ROOM SAFETY CHECK DONE. WILL MONITOR PATIENT FOR MOOD,SAFETY AND BEHAVIOR.
[2019-01-23 08:00] VITALS: BP 105/65
[2019-01-23] MEDS ORDERED: PROT946L PO (08:11)
[2019-01-23] MEDS: LEVETIRACETAM (250 MG) 250 MG TABLET PO SCH ×2 (10:38→21:27)
[2019-01-23] MEDS: PROSOURCE / PROSTAT (PYXIS) 30 ML UDC PO SCH (10:39)
[2019-01-23] MEDS: risperiDONE 1 MG TABLET PO SCH ×2 (12:03→16:25)
[2019-01-23] MEDS: CEPHALEXIN MONOHYDRATE 250 MG CAPSULE PO SCH ×3 (12:03→23:04)
[2019-01-23] MEDS: DIVALPROEX SODIUM 250 MG TABLET.DR PO SCH (12:03)
--- NOTE | 2019-01-23 15:25 | NUR ---
ARTURO contacted Kiya ([phone]) from [facility] and inquired about whether the pt can return to their facility and she stated that it is uncertain at the moment but she will contact the SW and let her know.
--- NOTE | 2019-01-23 15:37 | NUR ---
ARTURO called the pts daughter, Mary ([phone]), and informed her that the pt is at the facility and informed her about the treatment plan and the initial discharge plan. ARTURO informed her that [facility] is still trying to determine whether or not the pt can return. ARTURO stated that she would inform her as soon as possible.
--- NOTE | 2019-01-23 15:40 | NUR ---
Initial Discharge Plan: Pt currently resides at [facility] located at [address] [place] [address]; ([phone]). Per Kiya at the facility, she is unsure at the moment about whether or not the pt will be admitted back. ARTURO will work with the pt and the MD regarding appropriate discharge planning. SW will form a safe and proper discharge.
[2019-01-23] MEDS: DOCUSATE SODIUM 100 MG CAPSULE PO SCH (16:25)
[2019-01-23] MEDS: METFORMIN 500 MG TABLET PO SCH (16:25)
[2019-01-23] MEDS: DIVALPROEX SODIUM 500 MG TABLET.DR PO SCH (16:25)
[2019-01-23 16:28] VITALS: BP 118/71
[2019-01-23 20:00] VITALS: BP 150/86
[2019-01-23] MEDS: DONEPEZIL 5 MG TABLET PO SCH (21:28)
[2019-01-24] MEDS: LORAZEPAM 0.5 MG TABLET PO PRN (02:53)
[2019-01-24] MEDS: CEPHALEXIN MONOHYDRATE 250 MG CAPSULE PO SCH ×3 (06:00→17:04)
[2019-01-24 08:00] VITALS: BP 107/62
[2019-01-24] MEDS: LEVETIRACETAM (250 MG) 250 MG TABLET PO SCH ×2 (08:45→20:13)
[2019-01-24] MEDS: DOCUSATE SODIUM 100 MG CAPSULE PO SCH ×2 (08:45→17:04)
[2019-01-24] MEDS: risperiDONE 1 MG TABLET PO SCH ×3 (08:45→17:04)
[2019-01-24] MEDS: LISINOPRIL (10MG) 10 MG TABLET PO SCH (08:45)
[2019-01-24] MEDS: METFORMIN 500 MG TABLET PO SCH ×2 (08:45→17:04)
[2019-01-24] MEDS: DIVALPROEX SODIUM 250 MG TABLET.DR PO SCH ×2 (08:45→13:07)
[2019-01-24] MEDS: PROSOURCE / PROSTAT (PYXIS) 30 ML UDC PO SCH (08:46)
--- NOTE | 2019-01-24 08:48 | NUR ---
WOUND CARE CONSULT: PT PRESENTS WITH MULTIPLE SCARS ON LOWER LEGS AND HEALED AREA TO RT LATERAL LOWER LEG, PRESENT ON ADMISSION. PT IS AMBULATORY AND CONTINENT. RECOMMEND EUCERIN CREAM FOR DRY SKIN. DISCUSSED WITH NURSING STAFF. WILL SEE PRN. LANDRUM IN AGREEMENT WITH PLAN OF CARE.
[2019-01-24] MEDS: MINERAL OIL/PETROLATUM,WHITE 120 GM JAR TP SCH (12:23)
[2019-01-24 16:00] VITALS: BP 95/65
[2019-01-24] MEDS: DIVALPROEX SODIUM 500 MG TABLET.DR PO SCH (17:04)
[2019-01-24 20:00] VITALS: BP 147/74
[2019-01-24] MEDS: DONEPEZIL 5 MG TABLET PO SCH (21:27)
[2019-01-25] MEDS: CEPHALEXIN MONOHYDRATE 250 MG CAPSULE PO SCH ×5 (01:39→17:20)
--- NOTE | 2019-01-25 06:00 | NUR ---
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 WILL ENDORSE TO DAY RN TODAY.
[2019-01-25 06:26] LABS: BASOPHILS % (AUTO) 0.3 % (0.0-2.0); EOSINOPHILS % (AUTO) 5.4 % (0.0-6.0); HEMATOCRIT 40 % (39-51); HEMOGLOBIN 13.6 g/dL (13.5-17.5); LYMPHOCYTES # (AUTO) 2.3 /CMM (0.8-4.8); LYMPHOCYTES % (AUTO) 33.5 % (20.0-44.0); MEAN CORPUSCULAR HGB CONC 34 g/dl (31.0-36.0); MEAN CORPUSCULAR VOLUME 91 fL (80-96); MONOCYTES # (AUTO) 0.4 /CMM (0.1-1.30); MONOCYTES % (AUTO) 6.4 % (2.0-12.0); NEUTROPHILS # (AUTO) 3.8 /CMM (1.8-8.9); NEUTROPHILS % (AUTO) 54.4 % (43.0-81.0); PLATELET COUNT (AUTO) 206 /CMM (150-450); RED BLOOD CELL COUNT(AUTO) 4.35 MIL/uL (4.5-6.0); WHITE BLOOD COUNT (AUTO) 6.9 K/uL (4.3-11.0)
[2019-01-25 06:50] LABS: ALBUMIN 2.9 g/dL (3.4-5.0); BILIRUBIN,TOTAL 0.4 mg/dL (0.2-1.0); CALCIUM, SERUM 8.5 mg/dL (8.5-10.1); CREATININE 1.3 mg/dL (0.6-1.3); POTASSIUM 4.2 mmol/L (3.5-5.1); TOTAL PROTEIN, SERUM 6.4 g/dL (6.4-8.2)
[2019-01-25 08:00] VITALS: BP 100/61
[2019-01-25] MEDS: LEVETIRACETAM (250 MG) 250 MG TABLET PO SCH ×2 (08:14→21:20)
[2019-01-25] MEDS: risperiDONE 1 MG TABLET PO SCH ×3 (08:15→16:09)
[2019-01-25] MEDS: DOCUSATE SODIUM 100 MG CAPSULE PO SCH ×2 (08:15→16:09)
[2019-01-25] MEDS: DIVALPROEX SODIUM 250 MG TABLET.DR PO SCH ×2 (08:15→12:06)
[2019-01-25] MEDS: METFORMIN 500 MG TABLET PO SCH ×2 (08:15→16:09)
[2019-01-25] MEDS: LISINOPRIL (10MG) 10 MG TABLET PO SCH (08:18)
--- NOTE | 2019-01-25 08:18 | NUR ---
RN NOTE: 0900 BP MED HELD; BP 100/61
[2019-01-25] MEDS: MINERAL OIL/PETROLATUM,WHITE 120 GM JAR TP SCH (08:20)
[2019-01-25] MEDS: PROSOURCE / PROSTAT (PYXIS) 30 ML UDC PO SCH (08:21)
[2019-01-25] MEDS: LORAZEPAM 0.5 MG TABLET PO PRN (14:25)
--- NOTE | 2019-01-25 14:53 | NUR ---
RN NOTE: PATIENT CAME UP TO ME STATING FEELINGS OF ANXIETY, PRN ATIVAN GIVEN.
[2019-01-25 16:00] VITALS: BP 121/61
[2019-01-25] MEDS: DIVALPROEX SODIUM 500 MG TABLET.DR PO SCH (16:09)
--- NOTE | 2019-01-25 19:41 | NUR ---
RELATIVE AT THE BEDSIDE, AWAKE, ALERT, ORIENTED X2, RESTING IN BED, COMFORTABLE.
[2019-01-25 20:03] VITALS: BP 100/60
[2019-01-25] MEDS: DONEPEZIL 5 MG TABLET PO SCH (21:20)
[2019-01-26] MEDS: CEPHALEXIN MONOHYDRATE 250 MG CAPSULE PO SCH ×5 (01:17→23:02)
[2019-01-26 08:00] VITALS: BP 101/60
[2019-01-26] MEDS: DOCUSATE SODIUM 100 MG CAPSULE PO SCH ×2 (08:11→17:02)
[2019-01-26] MEDS: DIVALPROEX SODIUM 250 MG TABLET.DR PO SCH ×2 (08:11→12:25)
[2019-01-26] MEDS: METFORMIN 500 MG TABLET PO SCH ×2 (08:11→17:03)
[2019-01-26] MEDS: risperiDONE 1 MG TABLET PO SCH ×3 (08:11→17:03)
[2019-01-26] MEDS: LEVETIRACETAM (250 MG) 250 MG TABLET PO SCH ×2 (08:11→22:10)
[2019-01-26] MEDS: LISINOPRIL (10MG) 10 MG TABLET PO SCH (08:14)
--- NOTE | 2019-01-26 08:14 | NUR ---
RN NOTE: 0900 BP MED HELD D/T BP 101/60
[2019-01-26] MEDS: MINERAL OIL/PETROLATUM,WHITE 120 GM JAR TP SCH (08:15)
[2019-01-26] MEDS: PROSOURCE / PROSTAT (PYXIS) 30 ML UDC PO SCH (08:16)
[2019-01-26 16:42] VITALS: BP_SYST 104; BP_SYST 125; BP_DIAS 60; BP_DIAS 64
[2019-01-26] MEDS: DIVALPROEX SODIUM 500 MG TABLET.DR PO SCH (17:02)
[2019-01-26 20:23] VITALS: BP 105/63
[2019-01-26] MEDS: DONEPEZIL 5 MG TABLET PO SCH (22:09)
[2019-01-27] MEDS ORDERED: CEPHALEXIN MONOHYDRATE 250 MG CAPSULE PO ONE (06:09)
[2019-01-27] MEDS: CEPHALEXIN MONOHYDRATE 250 MG CAPSULE PO SCH ×3 (06:20→17:28)
--- NOTE | 2019-01-27 06:57 | NUR ---
RN NOTES PATIENT'S KEFLEX 500MG WAS TAKEN FROM [facility]. GPS ONLY HAD 1 PILL IN STOCK OF THE KEFLEX 250MG AND PATIENT NEEDED 2.
[2019-01-27 08:00] VITALS: BP 122/71
[2019-01-27] MEDS: DIVALPROEX SODIUM 250 MG TABLET.DR PO SCH ×2 (08:16→12:33)
[2019-01-27] MEDS: LEVETIRACETAM (250 MG) 250 MG TABLET PO SCH ×2 (08:16→21:41)
[2019-01-27] MEDS: risperiDONE 1 MG TABLET PO SCH ×3 (08:16→17:28)
[2019-01-27] MEDS: METFORMIN 500 MG TABLET PO SCH ×2 (08:16→17:28)
[2019-01-27] MEDS: LISINOPRIL (10MG) 10 MG TABLET PO SCH (08:16)
[2019-01-27] MEDS: PROSOURCE / PROSTAT (PYXIS) 30 ML UDC PO SCH (08:21)
[2019-01-27] MEDS: MINERAL OIL/PETROLATUM,WHITE 120 GM JAR TP SCH (08:21)
[2019-01-27] MEDS: DOCUSATE SODIUM 100 MG CAPSULE PO SCH ×2 (08:22→17:28)
--- NOTE | 2019-01-27 09:22 | NUR ---
ARTURO moneted a referral to [facility] with attention to Diomedes and Manas to the fax number: [phone]. Addendum: 01/28/19 at 1016 by LEELA MORRIS Fax number: [phone]
[2019-01-27 16:00] VITALS: BP 113/66
[2019-01-27] MEDS: DIVALPROEX SODIUM 500 MG TABLET.DR PO SCH (17:28)
[2019-01-27 20:00] VITALS: BP 134/73
[2019-01-27] MEDS: DONEPEZIL 5 MG TABLET PO SCH (21:41)
[2019-01-27] MEDS ORDERED: risperiDONE 1 MG TABLET PO SCH (22:00)
[2019-01-28] MEDS: CEPHALEXIN MONOHYDRATE 250 MG CAPSULE PO SCH ×4 (02:22→18:13)
[2019-01-28 07:47] LABS: BASOPHILS % (AUTO) 0.3 % (0.0-2.0); EOSINOPHILS % (AUTO) 7.4 % (0.0-6.0); HEMATOCRIT 45 % (39-51); HEMOGLOBIN 15.3 g/dL (13.5-17.5); LYMPHOCYTES # (AUTO) 2.2 /CMM (0.8-4.8); LYMPHOCYTES % (AUTO) 35.2 % (20.0-44.0); MEAN CORPUSCULAR HGB CONC 34 g/dl (31.0-36.0); MEAN CORPUSCULAR VOLUME 91 fL (80-96); MONOCYTES # (AUTO) 0.4 /CMM (0.1-1.30); NEUTROPHILS # (AUTO) 3.1 /CMM (1.8-8.9); NEUTROPHILS % (AUTO) 50.1 % (43.0-81.0); PLATELET COUNT (AUTO) 235 /CMM (150-450); RED BLOOD CELL COUNT(AUTO) 4.94 MIL/uL (4.5-6.0); WHITE BLOOD COUNT (AUTO) 6.2 K/uL (4.3-11.0)
[2019-01-28 08:00] VITALS: BP 124/72
[2019-01-28 08:00] LABS: ALBUMIN 3.5 g/dL (3.4-5.0); BILIRUBIN,TOTAL 0.4 mg/dL (0.2-1.0); CALCIUM, SERUM 9.2 mg/dL (8.5-10.1); CREATININE 1.1 mg/dL (0.6-1.3); POTASSIUM 4.1 mmol/L (3.5-5.1); TOTAL PROTEIN, SERUM 7.5 g/dL (6.4-8.2)
[2019-01-28] MEDS: PROSOURCE / PROSTAT (PYXIS) 30 ML UDC PO SCH (09:00)
[2019-01-28] MEDS: DOCUSATE SODIUM 100 MG CAPSULE PO SCH ×2 (09:34→17:49)
[2019-01-28] MEDS: METFORMIN 500 MG TABLET PO SCH ×2 (09:34→17:48)
[2019-01-28] MEDS: DIVALPROEX SODIUM 250 MG TABLET.DR PO SCH ×3 (09:34→17:49)
[2019-01-28] MEDS: LISINOPRIL (10MG) 10 MG TABLET PO SCH (09:34)
[2019-01-28] MEDS: LEVETIRACETAM (250 MG) 250 MG TABLET PO SCH ×2 (09:35→21:00)
[2019-01-28] MEDS: risperiDONE 1 MG TABLET PO SCH ×3 (09:35→17:49)
[2019-01-28] MEDS: MINERAL OIL/PETROLATUM,WHITE 120 GM JAR TP SCH (09:36)
--- NOTE | 2019-01-28 10:14 | NUR ---
Manas ([phone]) from [facility] contacted the and stated that the pt cannot be accepted due to the lack of SNF days.
--- NOTE | 2019-01-28 10:16 | NUR ---
ARTURO faxed a referral to [facility] with attention to Rickey to the fax number: [phone].
--- NOTE | 2019-01-28 14:49 | NUR ---
ARTURO called the pts daughter, Mary ([phone]), and informed her that the pt was not accepted to [facility] or [facility] and so the pt will be returning to [facility]. SW encouraged the pts daughter to have a memory care facility as a backup in case the pt cannot stay at the facility for long or is sent out again.
--- NOTE | 2019-01-28 15:01 | NUR ---
Hellen ([phone]) from [facility] stated that the pt was not accepted to their facility because the pt has no full SNF days.
--- NOTE | 2019-01-28 15:56 | NUR ---
GROUP NOTE: SW attempted to engage pt in group therapy on this present day discussing poor life choices and how they have affected pts life. However, pt was unable to participate due to pt being cognitively impaired and not being able to engage in conversation.
[2019-01-28 16:00] VITALS: BP 100/69
[2019-01-28] MEDS: DIVALPROEX SODIUM 500 MG TABLET.DR PO SCH (17:49)
--- NOTE | 2019-01-28 20:00 | NUR ---
GPS RN NOTES: PT. AWARE THAT URINE IS NEEDED TO BE COLLECTED FOR UA .UNABLE TO PROVIDER URINE SPECIMEN IN URINAL / SPECIMEN CUP , PT. URINATING FLUSHING IN TOILET. PT. BEHAVIOR CONFUSED FORGETFUL.
[2019-01-28 20:17] VITALS: BP 138/80
[2019-01-28] MEDS ORDERED: risperiDONE 1 MG TABLET PO SCH (22:00)
[2019-01-28] MEDS: DONEPEZIL 5 MG TABLET PO SCH (22:03)
[2019-01-28] MEDS: LORAZEPAM 0.5 MG TABLET PO PRN (23:22)
[2019-01-29] MEDS: CEPHALEXIN MONOHYDRATE 250 MG CAPSULE PO SCH ×4 (00:37→17:07)
[2019-01-29 08:00] VITALS: BP 115/59
[2019-01-29] MEDS: LISINOPRIL (10MG) 10 MG TABLET PO SCH (09:00)
[2019-01-29] MEDS: METFORMIN 500 MG TABLET PO SCH ×2 (09:12→17:11)
[2019-01-29] MEDS: DOCUSATE SODIUM 100 MG CAPSULE PO SCH ×2 (09:12→17:08)
[2019-01-29] MEDS: LEVETIRACETAM (250 MG) 250 MG TABLET PO SCH ×2 (09:13→21:32)
[2019-01-29] MEDS: DIVALPROEX SODIUM 250 MG TABLET.DR PO SCH ×3 (09:13→17:08)
[2019-01-29] MEDS: risperiDONE 1 MG TABLET PO SCH ×4 (09:13→21:32)
[2019-01-29] MEDS: PROSOURCE / PROSTAT (PYXIS) 30 ML UDC PO SCH (09:14)
--- NOTE | 2019-01-29 09:54 | NUR ---
PC Hearing Notification: SW called the pts daughter, Mary ([phone]), and informed her about the hearing and what that entails. She stated that she will not be able to make it and therefore the SW will inform her about the results.
[2019-01-29] MEDS: MINERAL OIL/PETROLATUM,WHITE 120 GM JAR TP SCH (13:33)
--- NOTE | 2019-01-29 15:17 | NUR ---
ALTHOUGH PT. GIVEN INSTRUCTION TO COLLECT URINE SAMPLE,STILL WAITING FOR SPECIMEN.
--- NOTE | 2019-01-29 15:36 | NUR ---
GROUP NOTE: SW attempted to engage pt in group therapy on this present day discussing discharge planning. However, pt was unable to participate due to pt being cognitively impaired and not being able to engage in a meaningful conversation.
[2019-01-29 16:00] VITALS: BP 125/92
[2019-01-29] MEDS: DIVALPROEX SODIUM 500 MG TABLET.DR PO SCH (17:07)
[2019-01-29 20:32] VITALS: BP 118/80
[2019-01-29] MEDS: DONEPEZIL 5 MG TABLET PO SCH (21:32)
[2019-01-30 02:45] LABS: APPEARANCE,URINE CLEAR (CLEAR); BILIRUBIN,URINE NEGATIVE (NEGATIVE); BLOOD, URINE TRACE-INTA Ery/uL (NEGATIVE); COLOR,URINE OTHER (YELLOW); KETONES,URINE NEGATIVE (NEGATIVE); LEUKOCYTE ESTERASE ,URINE 1+ (NEGATIVE); NITRITE, URINE POSITIVE (NEGATIVE); PH,URINE 6.5 (5.0-8.0); PROTEIN,URINE NEGATIVE (NEGATIVE); UGLUCOSE NEGATIVE (NEGATIVE); UROBILINOGEN,URINE 0.2 EU/dL (0.2)
[2019-01-30 02:50] LABS: BACTERIA,URINE Few /HPF (None Seen); SPERM,URINE Few /HPF (None Seen); SQUAMOUS EPITHELIAL CELL,UR Rare /HPF (None Seen)
[2019-01-30 07:14] LABS: BASOPHILS % (AUTO) 0.5 % (0.0-2.0); EOSINOPHILS % (AUTO) 5.6 % (0.0-6.0); HEMATOCRIT 43 % (39-51); HEMOGLOBIN 14.8 g/dL (13.5-17.5); LYMPHOCYTES # (AUTO) 2.6 /CMM (0.8-4.8); MEAN CORPUSCULAR HGB CONC 34 g/dl (31.0-36.0); MEAN CORPUSCULAR VOLUME 91 fL (80-96); MONOCYTES # (AUTO) 0.5 /CMM (0.1-1.30); MONOCYTES % (AUTO) 7.4 % (2.0-12.0); NEUTROPHILS # (AUTO) 3.3 /CMM (1.8-8.9); NEUTROPHILS % (AUTO) 48.5 % (43.0-81.0); PLATELET COUNT (AUTO) 260 /CMM (150-450); RED BLOOD CELL COUNT(AUTO) 4.77 MIL/uL (4.5-6.0); WHITE BLOOD COUNT (AUTO) 6.8 K/uL (4.3-11.0)
[2019-01-30 07:34] LABS: CALCIUM, SERUM 9.1 mg/dL (8.5-10.1); CREATININE 1.3 mg/dL (0.6-1.3); MAGNESIUM 1.7 mg/dL (1.8-2.4); PHOSPHORUS 4.2 mg/dL (2.5-4.9); POTASSIUM 4.3 mmol/L (3.5-5.1)
[2019-01-30 08:00] VITALS: BP 118/70
[2019-01-30] MEDS: METFORMIN 500 MG TABLET PO SCH ×2 (08:05→16:11)
[2019-01-30] MEDS: LEVETIRACETAM (250 MG) 250 MG TABLET PO SCH ×2 (08:05→21:39)
[2019-01-30] MEDS: DIVALPROEX SODIUM 250 MG TABLET.DR PO SCH ×3 (08:05→16:28)
[2019-01-30] MEDS: DOCUSATE SODIUM 100 MG CAPSULE PO SCH ×2 (08:05→16:11)
[2019-01-30] MEDS: risperiDONE 1 MG TABLET PO SCH ×4 (08:05→21:39)
[2019-01-30] MEDS: PROSOURCE / PROSTAT (PYXIS) 30 ML UDC PO SCH (08:06)
[2019-01-30] MEDS: LISINOPRIL (10MG) 10 MG TABLET PO SCH (08:06)
[2019-01-30] MEDS: MINERAL OIL/PETROLATUM,WHITE 120 GM JAR TP SCH (08:07)
[2019-01-30] MEDS ORDERED: MAGNESIUM OXIDE 400 MG TABLET PO ONE (11:00)
--- NOTE | 2019-01-30 15:15 | NUR ---
Group note: Pt attended a group session on 01/30/19 at 2PM discussing their discharge plan. S: Pt stated, �I want to return to my home, that is where I have been living and I can take care of myself there. I do not need my daughter to be involved in my care, I am a grown man and I can take care of myself.� O: Pt was present during the group session and was engaged. Pt appeared to be in a euthymic mood and presented with a calm affect. Pt maintained appropriate eye contact and had an appropriate tone of voice. A: Pt expressed that he does not think that he needs any assistance managing his life. SW brought it to his attention that for the past 6 months he has been living in a penitentiary that he cannot recall. The pt did not seem to believe the SW and was confused. He reiterated that he would like to return to his home. P: Pt will continue milieu treatment and medication stabilization.
[2019-01-30 16:00] VITALS: BP 103/62
[2019-01-30] MEDS: DIVALPROEX SODIUM 500 MG TABLET.DR PO SCH (16:11)
[2019-01-30 20:22] VITALS: BP 112/71
[2019-01-30] MEDS: DONEPEZIL 5 MG TABLET PO SCH (21:39)
[2019-01-31 08:00] VITALS: BP 108/73
[2019-01-31] MEDS: DIVALPROEX SODIUM 250 MG TABLET.DR PO SCH ×3 (08:26→16:15)
[2019-01-31] MEDS: MINERAL OIL/PETROLATUM,WHITE 120 GM JAR TP SCH (08:26)
[2019-01-31] MEDS: METFORMIN 500 MG TABLET PO SCH ×2 (08:26→16:15)
[2019-01-31] MEDS: LEVETIRACETAM (250 MG) 250 MG TABLET PO SCH ×2 (08:26→21:27)
[2019-01-31] MEDS: DOCUSATE SODIUM 100 MG CAPSULE PO SCH ×2 (08:26→16:15)
[2019-01-31] MEDS: PROSOURCE / PROSTAT (PYXIS) 30 ML UDC PO SCH (08:27)
[2019-01-31] MEDS: risperiDONE 1 MG TABLET PO SCH ×4 (08:27→21:27)
[2019-01-31] MEDS: LISINOPRIL (10MG) 10 MG TABLET PO SCH (08:27)
--- NOTE | 2019-01-31 11:54 | NUR ---
Group Note Goal: Patient will attend group being held today from 10am -10:30 in the activities room and participate and/or actively listen to peers and be respectful. Intervention: SW invited patient to attend group session with peers regarding their support system. SW respected patient�s self-determination and will continue to invite patient to group. Response: Patient declined to participate in today�s group executive secretary social welfare session. Plan: Patient will be invited to attend next executive secretary social welfare group session held.
[2019-01-31 16:00] VITALS: BP 127/79
[2019-01-31] MEDS: DIVALPROEX SODIUM 500 MG TABLET.DR PO SCH (16:15)
--- NOTE | 2019-01-31 19:37 | NUR ---
GPS RN NOTE, RECEIVED PATIENT AWAKE AND IN BED, NO S/S OR COMPLAINTS OF PAIN AT THIS TIME. PATIENT IS DISPLAYING NO S/S OF APPARENT DISTRESS AT THIS TIME. PATIENT BREATHING IS UNLABORED WITH EQUAL RISE AND FALL OF THE CHEST. PATIENT IS ALERT AND ORIENTED X 2-3 ON ROOM AIR WITH A SPO2 OF 94 %. PATIENT IS MED COMPLAINT, DISORGANIZED, ANXIOUS, COOPERATIVE, CONFUSED, AND NEEDS REORIENTATION. PATIENT DENIES SUICIDE AND HOMICIDAL IDEATIONS AT THIS TIME. PATIENT ASSISTED WITH TURNING AND REPOSITIONING Q2HR AND PRN FOR COMFORT AND CIRCULATION. PATIENT HAS NO NEEDS AT THIS TIME. PATIENT EDUCATED ON THE USE OF THE CALL JOHNSON. PATIENT BED SIDE RAILS ARE UP X 2 FOR SAFETY, BED IS LOCKED, AND LOW WILL CONTINUE TO MONITOR AND MAINTAIN SAFETY.
[2019-01-31 20:00] VITALS: BP 144/83
[2019-01-31] MEDS: DONEPEZIL 5 MG TABLET PO SCH (21:27)
[2019-02-01 08:00] VITALS: BP 107/64
[2019-02-01] MEDS: MINERAL OIL/PETROLATUM,WHITE 120 GM JAR TP SCH (08:08)
[2019-02-01] MEDS: DIVALPROEX SODIUM 250 MG TABLET.DR PO SCH ×3 (08:18→16:33)
[2019-02-01] MEDS: DOCUSATE SODIUM 100 MG CAPSULE PO SCH ×2 (08:18→16:31)
[2019-02-01] MEDS: risperiDONE 1 MG TABLET PO SCH ×4 (08:19→21:04)
[2019-02-01] MEDS: LEVETIRACETAM (250 MG) 250 MG TABLET PO SCH ×2 (08:19→20:06)
[2019-02-01] MEDS: METFORMIN 500 MG TABLET PO SCH ×2 (08:19→16:31)
[2019-02-01] MEDS: LISINOPRIL (10MG) 10 MG TABLET PO SCH (08:20)
[2019-02-01] MEDS: PROSOURCE / PROSTAT (PYXIS) 30 ML UDC PO SCH (08:21)
[2019-02-01] MEDS: LORAZEPAM 0.5 MG TABLET PO PRN (14:08)
--- NOTE | 2019-02-01 14:11 | NUR ---
GPS/RN-NOTES NOTED PATIENT VERY ANXIOUS FOCUSING ON GOING HOME OPENING MAIN DOOR. REDIRECTED PATIENT AND OFFERED ATIVAN AND AGREED. ATIVAN 0.5MG P.O GIVEN PRN ORDER. WILL CONT. MONITORING FOR SAFETY AND BEHAVIOR.
[2019-02-01 16:12] VITALS: BP 108/63
[2019-02-01] MEDS: DIVALPROEX SODIUM 500 MG TABLET.DR PO SCH (16:31)
[2019-02-01 20:00] VITALS: BP 128/72
[2019-02-01] MEDS: DONEPEZIL 5 MG TABLET PO SCH (21:04)
[2019-02-02 08:00] VITALS: BP 116/70
[2019-02-02] MEDS: risperiDONE 1 MG TABLET PO SCH ×4 (08:00→21:47)
[2019-02-02] MEDS: MINERAL OIL/PETROLATUM,WHITE 120 GM JAR TP SCH (09:00)
[2019-02-02] MEDS: METFORMIN 500 MG TABLET PO SCH ×2 (09:05→17:00)
[2019-02-02] MEDS: LISINOPRIL (10MG) 10 MG TABLET PO SCH (09:06)
[2019-02-02] MEDS: DIVALPROEX SODIUM 250 MG TABLET.DR PO SCH ×3 (09:06→17:00)
[2019-02-02] MEDS: DOCUSATE SODIUM 100 MG CAPSULE PO SCH ×2 (09:06→17:00)
[2019-02-02] MEDS: LEVETIRACETAM (250 MG) 250 MG TABLET PO SCH ×2 (09:06→21:47)
[2019-02-02] MEDS: PROSOURCE / PROSTAT (PYXIS) 30 ML UDC PO SCH (09:08)
[2019-02-02 16:00] VITALS: BP 106/61
[2019-02-02] MEDS: DIVALPROEX SODIUM 500 MG TABLET.DR PO SCH (17:00)
[2019-02-02 20:18] VITALS: BP 106/52
[2019-02-02 21:15] VITALS: BP 115/76
[2019-02-02] MEDS: DONEPEZIL 5 MG TABLET PO SCH (21:47)
[2019-02-03 08:00] VITALS: BP 110/60
[2019-02-03] MEDS: risperiDONE 1 MG TABLET PO SCH ×4 (08:00→22:07)
[2019-02-03] MEDS: MINERAL OIL/PETROLATUM,WHITE 120 GM JAR TP SCH (09:00)
[2019-02-03] MEDS: DIVALPROEX SODIUM 250 MG TABLET.DR PO SCH ×4 (09:41→22:06)
[2019-02-03] MEDS: LEVETIRACETAM (250 MG) 250 MG TABLET PO SCH ×2 (09:41→22:06)
[2019-02-03] MEDS: METFORMIN 500 MG TABLET PO SCH ×2 (09:42→17:00)
[2019-02-03] MEDS: LISINOPRIL (10MG) 10 MG TABLET PO SCH (09:42)
[2019-02-03] MEDS: DOCUSATE SODIUM 100 MG CAPSULE PO SCH ×2 (09:42→17:00)
[2019-02-03] MEDS: PROSOURCE / PROSTAT (PYXIS) 30 ML UDC PO SCH (09:43)
[2019-02-03 16:00] VITALS: BP 147/65
[2019-02-03] MEDS: LORAZEPAM 0.5 MG TABLET PO PRN (16:00)
--- NOTE | 2019-02-03 16:01 | NUR ---
RN NOTE:PATIENT ANXIOUS AND IRRITABLE MEDICATED WITH ATIVAN 0.5MG X1 WILL CONTINUE TO MONITOR .
--- NOTE | 2019-02-03 19:30 | NUR ---
GPS RN NOTE, RECEIVED PATIENT AWAKE AND IN BED, NO S/S OR COMPLAINTS OF PAIN AT THIS TIME. PATIENT IS DISPLAYING NO S/S OF APPARENT DISTRESS AT THIS TIME. PATIENT BREATHING IS UNLABORED WITH EQUAL RISE AND FALL OF THE CHEST. PATIENT IS ALERT AND ORIENTED X 2 ON ROOM AIR WITH A SPO2 OF 94 %. PATIENT IS MED COMPLAINT, DISORGANIZED, ANXIOUS, COOPERATIVE, CONFUSED, AND NEEDS REORIENTATION. PATIENT DENIES SUICIDE AND HOMICIDAL IDEATIONS AT THIS TIME. PATIENT ASSISTED WITH TURNING AND REPOSITIONING Q2HR AND PRN FOR COMFORT AND CIRCULATION. PATIENT HAS NO NEEDS AT THIS TIME. PATIENT EDUCATED ON THE USE OF THE CALL JOHNSON. PATIENT BED SIDE RAILS ARE UP X 2 FOR SAFETY, BED IS LOCKED, AND LOW WILL CONTINUE TO MONITOR AND MAINTAIN SAFETY.
[2019-02-03 19:45] VITALS: BP 152/62
[2019-02-03] MEDS: DONEPEZIL 5 MG TABLET PO SCH (22:06)
[2019-02-04 08:00] VITALS: BP 103/61
[2019-02-04] MEDS: LISINOPRIL (10MG) 10 MG TABLET PO SCH (09:00)
[2019-02-04] MEDS: LEVETIRACETAM (250 MG) 250 MG TABLET PO SCH ×2 (10:34→21:15)
[2019-02-04] MEDS: METFORMIN 500 MG TABLET PO SCH ×2 (10:34→18:28)
[2019-02-04] MEDS: DOCUSATE SODIUM 100 MG CAPSULE PO SCH ×2 (10:35→18:27)
[2019-02-04] MEDS: DIVALPROEX SODIUM 250 MG TABLET.DR PO SCH ×4 (10:35→20:12)
[2019-02-04] MEDS: MINERAL OIL/PETROLATUM,WHITE 120 GM JAR TP SCH (10:37)
[2019-02-04] MEDS: risperiDONE 1 MG TABLET PO SCH ×4 (10:37→21:15)
[2019-02-04] MEDS: PROSOURCE / PROSTAT (PYXIS) 30 ML UDC PO SCH (10:40)
--- NOTE | 2019-02-04 15:26 | NUR ---
Group note: Pt attended a group session on 02/04/19 at 2:30PM discussing conflict resolution for while they are in the hospital and for after being discharged. S: Pt stated, �I just gotta let it go. Let it slide and move on.� O: Pt was present during the group session and was engaged. Pt appeared to be in a eurythmic mood and presented with a calm affect. Pt maintained appropriate eye contact and had an appropriate tone of voice. A: Pt expressed an ability to develop problem solving skills. Pt also gained awareness of his situation and capacity to set realistic problem solving tools to utilize for conflict resolution. P: Pt will continue milieu treatment and medication stabilization.
[2019-02-04 16:00] VITALS: BP 149/95
--- NOTE | 2019-02-04 17:39 | NUR ---
ANXIOUS AND OUT AT DESK OFTEN,VERY CONFUSED.
[2019-02-04 20:27] VITALS: BP 157/76
[2019-02-04] MEDS: DONEPEZIL 5 MG TABLET PO SCH (21:15)
[2019-02-05 08:00] VITALS: BP 117/67
[2019-02-05] MEDS: risperiDONE 1 MG TABLET PO SCH ×2 (08:00→13:00)
[2019-02-05 09:00] VITALS: BP 117/67
[2019-02-05] MEDS: LISINOPRIL (10MG) 10 MG TABLET PO SCH (09:00)
[2019-02-05] MEDS: PROSOURCE / PROSTAT (PYXIS) 30 ML UDC PO SCH (09:00)
[2019-02-05] MEDS: MINERAL OIL/PETROLATUM,WHITE 120 GM JAR TP SCH (09:00)
[2019-02-05] MEDS: LEVETIRACETAM (250 MG) 250 MG TABLET PO SCH (09:00)
[2019-02-05] MEDS: METFORMIN 500 MG TABLET PO SCH (09:00)
[2019-02-05] MEDS: DIVALPROEX SODIUM 250 MG TABLET.DR PO SCH ×2 (09:00→14:12)
[2019-02-05] MEDS: DOCUSATE SODIUM 100 MG CAPSULE PO SCH (09:00)
--- NOTE | 2019-02-05 14:00 | NUR ---
AVIATION OPERATIONS SPECIALIST NOTE:PATIENT ALERT ,VERBALLY RESPONSIVE ,DENIES SI/HI/AVH.VS STABLE ,MED COMPLIANT .PATIENT SEEN BY AND GEE WITH DISCHARGE ORDERS ALL ORDERS CARRIED OUT .REPORT GIVEN TO WINNIE CARMONA IN FACILITY ALL BELONGINGS RETURNED TO PATIENT .PATIENT DISCHARGE AT 1400 WITH AMBULANCE .
--- NOTE | 2019-02-05 14:23 | NUR ---
ARTURO called the pts daughter, Mary ([phone]), and informed her that the pt is going to be discharged back to [facility] today due to the pt being at his baseline. Pts daughter in agreement of discharge plan.
--- NOTE | 2019-02-05 14:36 | NUR ---
Discharge Note: Pt discharging to [facility] ([facility]) located at [address] [place] [address] ([phone]). Pt transported via [facility] at 2pm. Pt�s daughter, Mary ([phone]), was aware of the discharge. Upon discharge, the pt appeared to be in a euthymic mood and presented with a distressed affect. Pt denied both suicidal and homicidal ideation as well as auditory and visual hallucinations. Pt will be under the care of his psychiatrist, Dr. Painting, located at [address] [address], [place] [address]; and his accounts receivable administrator, Dr. Humphrey, located at [address] [facility] [facility] [address], [place] [address]; .
--- NOTE | 2019-02-05 14:36 | NUR ---
ARTURO faxed updated clinical notes to [facility] with attention to Kiya to the fax number: [phone].
== END 2019-02-05 14:40 | DRG 885 ==
LOC: ER 00:30 → GPS 04:13
PROVIDERS: ADMIT Psychiatry & Neurology Psychosomatic Medicine; ATTEND Internal Medicine
DX: F25.0 Schizoaffective disorder, bipolar type (principal); F01.51 Vascular dementia, unspecified severity, with behavioral disturbance; N17.0 Acute kidney failure with tubular necrosis; N39.0 Urinary tract infection, site not specified; F02.81 Dementia in other diseases classified elsewhere, unspecified severity, with behavioral disturbance; E11.9 Type 2 diabetes mellitus without complications; I10 Essential (primary) hypertension; R53.1 Weakness; G40.909 Epilepsy, unspecified, not intractable, without status epilepticus; G30.9 Alzheimer's disease, unspecified
CPT/HCPCS: 36415; 70450-TC; 80048-TC; 80053-TC; 80061-TC; 80076-TC; 80164-TC; 80177; 80305; 81000-TC; 83735-TC; 84100-TC; 85025-TC; 87081-TC; 87086-TC; G0480

== ENCOUNTER 2023-12-12 19:54 | Emergency (ER) | payer MEDICARE, OTHER ==
[~2023-12-12] VITALS: Ht 172.7 cm; Wt 95.3 kg
[~2023-12-12 19:54] MED LIST changes: +LISI10TA29 PO; -LISI10TA5 PO; +METF-440 PO; +PROT946L PO
[2023-12-12 20:54] LABS: BASOPHILS % (AUTO) 0.2 % (0.0-2.0); EOSINOPHILS # (AUTO) 0.4 K/uL (0.0-0.7); EOSINOPHILS % (AUTO) 4.8 % (0.0-6.0); HEMATOCRIT 36 % (39-51); HEMOGLOBIN 12.1 g/dL (13.5-17.5); LYMPHOCYTES % (AUTO) 27.5 % (20.0-44.0); MEAN CORPUSCULAR HEMOGLOBIN 31 PG (26.0-33.0); MEAN CORPUSCULAR HGB CONC 34 g/dl (31.0-36.0); MEAN CORPUSCULAR VOLUME 92 fL (80-96); MONOCYTES # (AUTO) 0.4 K/uL (0.1-1.30); NEUTROPHILS # (AUTO) 4.6 K/uL (1.8-8.9); NEUTROPHILS % (AUTO) 61.5 % (43.0-81.0); PLATELET COUNT (AUTO) 281 K/uL (150-450); RED BLOOD CELL COUNT(AUTO) 3.93 MIL/uL (4.5-6.0); RED CELL DISTRIBUTION WIDTH 13.3 % (11.5-15.0); WHITE BLOOD COUNT (AUTO) 7.4 K/uL (4.3-11.0)
[2023-12-12 21:14] LABS: ALANINE AMINOTRANSFERASE 27 U/L (12-78); ALBUMIN 2.9 g/dL (3.4-5.0); ALCOHOL, BLOOD < 3 mg/dL (0-10); ALKALINE PHOSPHATASE 86 U/L (46-116); ASPARTATE AMINOTRANSFERASE 18 U/L (15-37); BILIRUBIN,DIRECT 0.1 mg/dL (0.0-0.2); BILIRUBIN,TOTAL 0.2 mg/dL (0.2-1.0); CALCIUM, SERUM 9.4 mg/dL (8.5-10.1); CARBON DIOXIDE 26 mmol/L (21-32); CHLORIDE 104 mmol/L (98-107); CREATININE 1.5 mg/dL (0.6-1.3); GLUCOSE 168 mg/dL (74-106); POTASSIUM 4.6 mmol/L (3.5-5.1); SODIUM SERUM 138 mmol/L (136-145); TOTAL PROTEIN, SERUM 6.9 g/dL (6.4-8.2); UREA NITROGEN, BLOOD 29 mg/dL (7-18)
[2023-12-12 21:24] LABS: ACETAMINOPHEN 0 ug/ml (10-30)
[2023-12-12 23:57] VITALS: BP 116/73; TEMP 98; O2SAT 100
== END 2023-12-12 23:58 ==
LOC: ER 20:05
DX: R45.1 Restlessness and agitation (principal); F03.90 Unspecified dementia, unspecified severity, without behavioral disturbance, psychotic disturbance, mood disturbance, and anxiety; G40.909 Epilepsy, unspecified, not intractable, without status epilepticus; I12.9 Hypertensive chronic kidney disease with stage 1 through stage 4 chronic kidney disease, or unspecified chronic kidney disease; E11.22 Type 2 diabetes mellitus with diabetic chronic kidney disease; N18.9 Chronic kidney disease, unspecified; F20.9 Schizophrenia, unspecified; F31.9 Bipolar disorder, unspecified
CPT/HCPCS: 36415; 80048-TC; 80076-TC; 85025-TC; G0480

== ENCOUNTER 2023-12-21 21:16 | Inpatient (IN) | payer MEDICARE, OTHER ==
[~2023-12-21] VITALS: Ht 182.9 cm; Wt 99.8 kg
[2023-12-21 22:09] LABS: BASOPHILS % (AUTO) 0.3 % (0.0-2.0); EOSINOPHILS # (AUTO) 0.3 K/uL (0.0-0.7); EOSINOPHILS % (AUTO) 4.3 % (0.0-6.0); HEMATOCRIT 37 % (39-51); HEMOGLOBIN 12.3 g/dL (13.5-17.5); LYMPHOCYTES # (AUTO) 1.9 K/uL (0.8-4.8); LYMPHOCYTES % (AUTO) 26.5 % (20.0-44.0); MEAN CORPUSCULAR HEMOGLOBIN 31 PG (26.0-33.0); MEAN CORPUSCULAR HGB CONC 33 g/dl (31.0-36.0); MEAN CORPUSCULAR VOLUME 92 fL (80-96); MONOCYTES # (AUTO) 0.4 K/uL (0.1-1.30); NEUTROPHILS # (AUTO) 4.6 K/uL (1.8-8.9); NEUTROPHILS % (AUTO) 62.9 % (43.0-81.0); PLATELET COUNT (AUTO) 272 K/uL (150-450); RED BLOOD CELL COUNT(AUTO) 3.99 MIL/uL (4.5-6.0); RED CELL DISTRIBUTION WIDTH 13.6 % (11.5-15.0); WHITE BLOOD COUNT (AUTO) 7.3 K/uL (4.3-11.0)
[2023-12-21 22:24] LABS: CALCIUM, SERUM 8.8 mg/dL (8.5-10.1); CARBON DIOXIDE 24 mmol/L (21-32); CHLORIDE 102 mmol/L (98-107); CREATININE 1.3 mg/dL (0.6-1.3); GLUCOSE 162 mg/dL (74-106); POTASSIUM 4.6 mmol/L (3.5-5.1); SODIUM SERUM 138 mmol/L (136-145); UREA NITROGEN, BLOOD 29 mg/dL (7-18)
[2023-12-21 22:30] LABS: ALANINE AMINOTRANSFERASE 16 U/L (12-78); ALCOHOL, BLOOD < 3 mg/dL (0-10); ALKALINE PHOSPHATASE 82 U/L (46-116); ASPARTATE AMINOTRANSFERASE 13 U/L (15-37); BILIRUBIN,DIRECT 0.1 mg/dL (0.0-0.2); BILIRUBIN,TOTAL 0.2 mg/dL (0.2-1.0)
[2023-12-21 22:33] LABS: ACETAMINOPHEN <10 ug/ml (10-30); SALICYLATE 1.2 mg/dL (2.8-20.0)
[2023-12-21 23:12] LABS: APPEARANCE,URINE SLIGHTLY CLOUDY (CLEAR); BILIRUBIN,URINE NEGATIVE (NEGATIVE); BLOOD, URINE 2+ Ery/uL (NEGATIVE); COLOR,URINE YELLOW (YELLOW); KETONES,URINE TRACE mg/dL (NEGATIVE); LEUKOCYTE ESTERASE ,URINE 3+ (NEGATIVE); NITRITE, URINE NEGATIVE (NEGATIVE); PROTEIN,URINE 1+ mg/dl (NEGATIVE); UGLUCOSE NEGATIVE (NEGATIVE); UROBILINOGEN,URINE 0.2 EU/dL (0.2)
[2023-12-21 23:25] LABS: AMPHETAMINE, URINE NEGATIVE (NEGATIVE); BARBITURATE, URINE NEGATIVE (NEGATIVE); BENZODIAZEPINE, URINE NEGATIVE (NEGATIVE); CANNABINOID, URINE NEGATIVE (NEGATIVE); COCCAINE, URINE NEGATIVE (NEGATIVE); OPIATE, URINE NEGATIVE (NEGATIVE); PHENCYCLIDINE SCREEN,URINE NEGATIVE (NEGATIVE)
[2023-12-22 00:06] LABS: ADD URINE CULTURE YES; BACTERIA,URINE 3+ /HPF (None Seen); MUCUS,URINE Moderate /LPF (None Seen); SQUAMOUS EPITHELIAL CELL,UR None Seen /HPF (None Seen); WBC,URINE 21-50 /HPF (0-3)
[2023-12-22] MEDS: CEPHALEXIN MONOHYDRATE 500 MG CAPSULE PO ONE (01:12)
[2023-12-22] MEDS ORDERED: CEPHALEXIN MONOHYDRATE 500 MG CAPSULE PO ONE (01:12)
[2023-12-22] MEDS ORDERED: LORAZEPAM INJ 2 MG/ML VIAL ONE (03:03)
[2023-12-22] MEDS: LORAZEPAM 4 MG/ML VIAL IM ONE (03:09)
[2023-12-22] MEDS ORDERED: MAGNESIUM HYDROXIDE 30 ML UDC PO PRN (05:30)
[2023-12-22] MEDS ORDERED: LORAZEPAM 1 MG TABLET PO PRN (05:30)
[2023-12-22] MEDS ORDERED: ZOLPIDEM TARTRATE 5 MG TABLET PO PRN (05:30)
[2023-12-22] MEDS ORDERED: MAG HYDROX/AL HYDROX/SIMETH 30 ML UDC PO PRN (05:30)
[2023-12-22] MEDS ORDERED: ACETAMINOPHEN 325 MG TABLET PO PRN ×2 (05:30→10:30)
[2023-12-22] MEDS: BLOOD SUGAR DIAGNOSTIC 1 EACH STRIP IN ONE (05:31)
[2023-12-22] MEDS ORDERED: DIVA125C2 PO (07:04)
[2023-12-22] MEDS ORDERED: GABA-532 PO (07:04)
[2023-12-22] MEDS ORDERED: OLAN2.5T3 PO ×2 (07:06)
[2023-12-22] MEDS ORDERED: LATA7.5D EACHEYE (07:07)
[2023-12-22] MEDS ORDERED: DEXT33GE7 PO (09:54)
[2023-12-22] MEDS ORDERED: OLAN5TAB3 PO (09:54)
[2023-12-22] MEDS ORDERED: ACET-73 PO (09:54)
[2023-12-22] MEDS ORDERED: OMEG-88 PO (09:54)
[2023-12-22] MEDS ORDERED: GLUC1KIT IJ (09:54)
[2023-12-22] MEDS ORDERED: ACETAMINOPHEN ES 500 MG TABLET PO PRN (10:30)
[2023-12-22] MEDS: CEPHALEXIN MONOHYDRATE 500 MG CAPSULE PO SCH (10:30)
[2023-12-22] MEDS: METFORMIN 500 MG TABLET PO SCH (11:00)
[2023-12-22] MEDS: GABAPENTIN 100 MG CAPSULE PO SCH (12:57)
[2023-12-22 16:00] VITALS: BP 99/55; TEMP 97.4; O2SAT 99
[2023-12-22] MEDS: DIVALPROEX SODIUM 125 MG CAP.SPRINK PO SCH (17:00)
[2023-12-22 21:21] VITALS: BP 141/74; TEMP 97.9; O2SAT 98
[2023-12-22] MEDS: LATANOPROST EYE DROP 0.005% 2.5 ML BOTTLE OP SCH (22:37)
[2023-12-22] MEDS: OLANZAPINE 2.5 MG TABLET PO SCH (22:38)
[2023-12-22] MEDS: LEVETIRACETAM (250 MG) 250 MG TABLET PO SCH (22:38)
[2023-12-23 07:18] LABS: BASOPHILS % (AUTO) 0.2 % (0.0-2.0); EOSINOPHILS # (AUTO) 0.3 K/uL (0.0-0.7); EOSINOPHILS % (AUTO) 3.1 % (0.0-6.0); HEMATOCRIT 42 % (39-51); HEMOGLOBIN 14.5 g/dL (13.5-17.5); LYMPHOCYTES # (AUTO) 1.9 K/uL (0.8-4.8); LYMPHOCYTES % (AUTO) 21.8 % (20.0-44.0); MEAN CORPUSCULAR HEMOGLOBIN 32 PG (26.0-33.0); MEAN CORPUSCULAR HGB CONC 35 g/dl (31.0-36.0); MEAN CORPUSCULAR VOLUME 92 fL (80-96); MONOCYTES # (AUTO) 0.5 K/uL (0.1-1.30); MONOCYTES % (AUTO) 5.9 % (2.0-12.0); NEUTROPHILS # (AUTO) 6.1 K/uL (1.8-8.9); PLATELET COUNT (AUTO) 305 K/uL (150-450); RED BLOOD CELL COUNT(AUTO) 4.57 MIL/uL (4.5-6.0); RED CELL DISTRIBUTION WIDTH 13.2 % (11.5-15.0); WHITE BLOOD COUNT (AUTO) 8.9 K/uL (4.3-11.0)
[2023-12-23 07:32] LABS: CALCIUM, SERUM 8.9 mg/dL (8.5-10.1); CARBON DIOXIDE 28 mmol/L (21-32); CHLORIDE 101 mmol/L (98-107); CREATININE 1.2 mg/dL (0.6-1.3); GLUCOSE 94 mg/dL (74-106); SODIUM SERUM 137 mmol/L (136-145); UREA NITROGEN, BLOOD 24 mg/dL (7-18)
[2023-12-23 08:58] LABS: CHOLESTEROL 202 mg/dL (<200); TRIGLYCERIDES 96 mg/dL (30-150)
[2023-12-23 08:59] LABS: HDL CHOLESTEROL 53 mg/dL (40-60); LDL 130 mg/dL (0-99)
[2023-12-23] MEDS: LISINOPRIL (10MG) 10 MG TABLET PO SCH (09:00)
[2023-12-23 09:44] VITALS: BP 90/53; TEMP 98.9
[2023-12-23 16:47] VITALS: BP 113/69; TEMP 97.2; O2SAT 98
[2023-12-23 20:00] VITALS: BP 136/76; TEMP 97.9; O2SAT 98
[2023-12-23 20:26] VITALS: BP 136/76; TEMP 97.9; O2SAT 98
[2023-12-23] MEDS: TEMAZEPAM 7.5 MG CAPSULE PO PRN (22:55)
[2023-12-24 08:00] VITALS: BP 114/58; TEMP 98.4; O2SAT 97
[2023-12-24 16:00] VITALS: BP 116/73; TEMP 98.2; O2SAT 100
[2023-12-25 08:00] VITALS: BP 113/56; TEMP 98.6; O2SAT 98
[2023-12-25 16:00] VITALS: BP 108/77; TEMP 98.7; O2SAT 96
[2023-12-25 20:11] VITALS: BP 123/58; TEMP 98.7; O2SAT 98
[2023-12-26 08:00] VITALS: BP 109/52; TEMP 98.1; O2SAT 98
[2023-12-26 11:13] LABS: BASOPHILS % (AUTO) 0.3 % (0.0-2.0); EOSINOPHILS # (AUTO) 0.4 K/uL (0.0-0.7); EOSINOPHILS % (AUTO) 5.1 % (0.0-6.0); HEMATOCRIT 37 % (39-51); HEMOGLOBIN 12.4 g/dL (13.5-17.5); LYMPHOCYTES # (AUTO) 2.1 K/uL (0.8-4.8); MEAN CORPUSCULAR HEMOGLOBIN 31 PG (26.0-33.0); MEAN CORPUSCULAR HGB CONC 34 g/dl (31.0-36.0); MEAN CORPUSCULAR VOLUME 92 fL (80-96); MONOCYTES # (AUTO) 0.7 K/uL (0.1-1.30); MONOCYTES % (AUTO) 9.1 % (2.0-12.0); NEUTROPHILS # (AUTO) 4.3 K/uL (1.8-8.9); NEUTROPHILS % (AUTO) 57.5 % (43.0-81.0); PLATELET COUNT (AUTO) 256 K/uL (150-450); RED BLOOD CELL COUNT(AUTO) 3.98 MIL/uL (4.5-6.0); RED CELL DISTRIBUTION WIDTH 13.5 % (11.5-15.0); WHITE BLOOD COUNT (AUTO) 7.4 K/uL (4.3-11.0)
[2023-12-26 11:19] LABS: CARBON DIOXIDE 27 mmol/L (21-32); CHLORIDE 104 mmol/L (98-107); CREATININE 1.4 mg/dL (0.6-1.3); GLUCOSE 131 mg/dL (74-106); POTASSIUM 4.3 mmol/L (3.5-5.1); SODIUM SERUM 138 mmol/L (136-145); UREA NITROGEN, BLOOD 31 mg/dL (7-18)
[2023-12-26 11:23] LABS: ALANINE AMINOTRANSFERASE 20 U/L (12-78); ALBUMIN 2.8 g/dL (3.4-5.0); ALKALINE PHOSPHATASE 81 U/L (46-116); ASPARTATE AMINOTRANSFERASE 11 U/L (15-37); BILIRUBIN,TOTAL 0.4 mg/dL (0.2-1.0); TOTAL PROTEIN, SERUM 6.7 g/dL (6.4-8.2)
[2023-12-26 11:26] LABS: LACTIC ACID 1.8 mmol/L (0.4-2.0)
[2023-12-26 16:00] VITALS: BP 120/62; TEMP 97.9; O2SAT 100
[2023-12-26] MEDS: NITROFURANTOIN/MONOHYDRATE MACROCRYSTALS 100 MG CAPSULE PO SCH (17:38)
[2023-12-26 20:00] VITALS: BP 142/77; TEMP 98; O2SAT 93
[2023-12-26] MEDS: OLANZAPINE 2.5 MG TABLET PO SCH (21:42)
[2023-12-27 08:00] VITALS: BP 117/71; TEMP 98.6; O2SAT 100
[2023-12-27 16:00] VITALS: BP 105/51; TEMP 98; O2SAT 96
[2023-12-27 20:00] VITALS: BP 122/70; TEMP 98.1; O2SAT 96
[2023-12-28] MEDS: LORAZEPAM 0.5 MG TABLET PO PRN (00:43)
[2023-12-28 08:00] VITALS: BP 129/63; TEMP 98; O2SAT 95
[2023-12-28 16:00] VITALS: BP 110/62; TEMP 98; O2SAT 98
[2023-12-28 20:00] VITALS: BP 137/68; TEMP 98.1; O2SAT 98
[2023-12-29 20:00] VITALS: BP 127/76; TEMP 98; O2SAT 99
[2023-12-30 07:47] LABS: BASOPHILS % (AUTO) 0.2 % (0.0-2.0); EOSINOPHILS # (AUTO) 0.6 K/uL (0.0-0.7); EOSINOPHILS % (AUTO) 8.7 % (0.0-6.0); HEMATOCRIT 35 % (39-51); HEMOGLOBIN 11.8 g/dL (13.5-17.5); LYMPHOCYTES # (AUTO) 2.4 K/uL (0.8-4.8); LYMPHOCYTES % (AUTO) 32.9 % (20.0-44.0); MEAN CORPUSCULAR HEMOGLOBIN 31 PG (26.0-33.0); MEAN CORPUSCULAR HGB CONC 34 g/dl (31.0-36.0); MEAN CORPUSCULAR VOLUME 92 fL (80-96); MONOCYTES # (AUTO) 0.5 K/uL (0.1-1.30); MONOCYTES % (AUTO) 7.1 % (2.0-12.0); NEUTROPHILS # (AUTO) 3.7 K/uL (1.8-8.9); NEUTROPHILS % (AUTO) 51.1 % (43.0-81.0); PLATELET COUNT (AUTO) 250 K/uL (150-450); RED CELL DISTRIBUTION WIDTH 13.1 % (11.5-15.0); WHITE BLOOD COUNT (AUTO) 7.2 K/uL (4.3-11.0)
[2023-12-30 08:00] VITALS: BP 100/71; TEMP 98.2; O2SAT 97
[2023-12-30 08:15] LABS: ALBUMIN 2.6 g/dL (3.4-5.0); BILIRUBIN,TOTAL 0.3 mg/dL (0.2-1.0); CALCIUM, SERUM 9.1 mg/dL (8.5-10.1); CREATININE 1.3 mg/dL (0.6-1.3); TOTAL PROTEIN, SERUM 6.3 g/dL (6.4-8.2)
[2023-12-30 16:00] VITALS: BP 105/75; TEMP 98.6; O2SAT 100
[2023-12-31 08:00] VITALS: BP 115/57; TEMP 98.6; O2SAT 100
== END 2023-12-31 12:45 | DRG 885 ==
LOC: ER 21:27 → GPS 12-22 01:43
PROVIDERS: ADMIT Psychiatry & Neurology Psychiatry; ATTEND Nurse Practitioner Family
DX: F39 Unspecified mood [affective] disorder (principal); N18.9 Chronic kidney disease, unspecified; B95.2 Enterococcus as the cause of diseases classified elsewhere; G93.41 Metabolic encephalopathy; N39.0 Urinary tract infection, site not specified; F02.818 Dementia in other diseases classified elsewhere, unspecified severity, with other behavioral disturbance; F02.82 Dementia in other diseases classified elsewhere, unspecified severity, with psychotic disturbance; G40.909 Epilepsy, unspecified, not intractable, without status epilepticus; G30.9 Alzheimer's disease, unspecified; F29 Unspecified psychosis not due to a substance or known physiological condition; Z20.822 Contact with and (suspected) exposure to COVID-19; I12.9 Hypertensive chronic kidney disease with stage 1 through stage 4 chronic kidney disease, or unspecified chronic kidney disease; E11.22 Type 2 diabetes mellitus with diabetic chronic kidney disease; K21.9 Gastro-esophageal reflux disease without esophagitis; R53.1 Weakness; Z79.84 Long term (current) use of oral hypoglycemic drugs; Z79.899 Other long term (current) drug therapy; Z73.6 Limitation of activities due to disability; H40.9 Unspecified glaucoma; D64.9 Anemia, unspecified; Z91.199 Patient's noncompliance with other medical treatment and regimen due to unspecified reason; F25.0 Schizoaffective disorder, bipolar type; F32.9 Major depressive disorder, single episode, unspecified; Z86.59 Personal history of other mental and behavioral disorders; B96.89 Other specified bacterial agents as the cause of diseases classified elsewhere
CPT/HCPCS: 36415; 80048-TC; 80053-TC; 80061-TC; 80076-TC; 80164-TC; 81001; 82962-TC; 83605-TC; 83735-TC; 85025-TC; 87081-TC; 87086-TC; 97110-TC; 97116-TC; 97530-TC; G0480; J2060

== ENCOUNTER 2024-01-20 03:05 | Inpatient (IN) | payer MEDICARE, OTHER ==
[~2024-01-20] VITALS: Ht 188 cm; Wt 86.2 kg
[~2024-01-20 03:05] MED LIST changes: +ACET-73 PO; +DEXT33GE7 PO; +DIVA125C2 PO; -DOCU100C36 PO; -DONE5TAB7 PO; +GABA-532 PO; +GLUC1KIT IM; +LATA7.5D EACHEYE; -MAGN400O21 PO; +OLAN2.5T3 PO; +OLAN5TAB3 PO; +OMEG-88 PO; -PROT946L PO
[2024-01-20 03:46] LABS: BASOPHILS % (AUTO) 0.3 % (0.0-2.0); EOSINOPHILS # (AUTO) 0.3 K/uL (0.0-0.7); EOSINOPHILS % (AUTO) 4.4 % (0.0-6.0); HEMATOCRIT 36 % (39-51); HEMOGLOBIN 12.2 g/dL (13.5-17.5); LYMPHOCYTES # (AUTO) 1.9 K/uL (0.8-4.8); LYMPHOCYTES % (AUTO) 28.3 % (20.0-44.0); MEAN CORPUSCULAR HEMOGLOBIN 31 PG (26.0-33.0); MEAN CORPUSCULAR HGB CONC 34 g/dl (31.0-36.0); MEAN CORPUSCULAR VOLUME 92 fL (80-96); MONOCYTES # (AUTO) 0.4 K/uL (0.1-1.30); MONOCYTES % (AUTO) 5.6 % (2.0-12.0); NEUTROPHILS # (AUTO) 4.1 K/uL (1.8-8.9); NEUTROPHILS % (AUTO) 61.4 % (43.0-81.0); PLATELET COUNT (AUTO) 261 K/uL (150-450); RED BLOOD CELL COUNT(AUTO) 3.94 MIL/uL (4.5-6.0); RED CELL DISTRIBUTION WIDTH 13.5 % (11.5-15.0); WHITE BLOOD COUNT (AUTO) 6.6 K/uL (4.3-11.0)
[2024-01-20 03:57] LABS: CALCIUM, SERUM 8.3 mg/dL (8.5-10.1); CARBON DIOXIDE 25 mmol/L (21-32); CHLORIDE 105 mmol/L (98-107); CREATININE 1.3 mg/dL (0.6-1.3); GLUCOSE 158 mg/dL (74-106); POTASSIUM 3.8 mmol/L (3.5-5.1); SODIUM SERUM 139 mmol/L (136-145); UREA NITROGEN, BLOOD 18 mg/dL (7-18)
[2024-01-20 03:59] LABS: URIC ACID 5.4 mg/dL (2.6-7.2)
[2024-01-20 04:02] LABS: ALANINE AMINOTRANSFERASE 14 U/L (12-78); ALBUMIN 2.6 g/dL (3.4-5.0); ALKALINE PHOSPHATASE 73 U/L (46-116); ASPARTATE AMINOTRANSFERASE 14 U/L (15-37); BILIRUBIN,TOTAL 0.3 mg/dL (0.2-1.0); TOTAL PROTEIN, SERUM 6.3 g/dL (6.4-8.2)
[2024-01-20 04:06] LABS: LACTIC ACID 2.8 mmol/L (0.4-2.0)
[2024-01-20] MEDS: IV NS 0.9% 1,000 ML IV ONE (04:40)
[2024-01-20 06:54] LABS: APPEARANCE,URINE CLOUDY (CLEAR); BILIRUBIN,URINE NEGATIVE (NEGATIVE); BLOOD, URINE 1+ Ery/uL (NEGATIVE); COLOR,URINE YELLOW (YELLOW); KETONES,URINE NEGATIVE (NEGATIVE); LEUKOCYTE ESTERASE ,URINE 3+ (NEGATIVE); NITRITE, URINE NEGATIVE (NEGATIVE); PROTEIN,URINE 1+ mg/dl (NEGATIVE); UGLUCOSE NEGATIVE (NEGATIVE)
[2024-01-20] MEDS: ENOXAPARIN SODIUM 80 MG/0.8 ML DISP.SYRIN SQ ONE (07:00)
[2024-01-20 07:28] LABS: BILIRUBIN,DIRECT 0.1 mg/dL (0.0-0.2)
[2024-01-20 07:42] LABS: LACTIC ACID REFLEX 1.4 mmol/L (0.4-1.9)
[2024-01-20 07:51] LABS: INR 1.14 (0.91-1.10); PARTIAL THROMBOPLASTIN TIME 26.4 SEC (24.3-34.3)
[2024-01-20] MEDS ORDERED: MAGN400O6 PO (08:07)
[2024-01-20] MEDS ORDERED: MAG30ORA PO (08:07)
[2024-01-20 11:31] LABS: ADD URINE CULTURE YES; BACTERIA,URINE 4+ /HPF (None Seen); MUCUS,URINE Moderate /LPF (None Seen); SQUAMOUS EPITHELIAL CELL,UR None Seen /HPF (None Seen); WBC,URINE 51-80 /HPF (0-3)
[2024-01-20] MEDS ORDERED: MAGNESIUM HYDROXIDE 30 ML UDC PO PRN (14:30)
[2024-01-20] MEDS ORDERED: Z GUARD REMEDY 4 OZ OINT TP PRN (14:30)
[2024-01-20] MEDS ORDERED: ONDANSETRON HCL/PF 4 MG/2 ML VIAL IVP PRN (14:30)
[2024-01-20] MEDS ORDERED: ACETAMINOPHEN 325 MG TABLET PO PRN (14:30)
[2024-01-20] MEDS ORDERED: DEXTROSE 50%-WATER 50 ML DISP.SYRIN IV PRN (14:30)
[2024-01-20] MEDS: CEFTRIAXONE 1 G in IV D5W 50 ML IV SCH (15:15)
[2024-01-20] MEDS: DIVALPROEX SODIUM 125 MG CAP.SPRINK PO SCH (17:00)
[2024-01-20] MEDS: APIXABAN 5 MG TABLET PO SCH (17:00)
[2024-01-20] MEDS: GABAPENTIN 100 MG CAPSULE PO SCH (17:00)
[2024-01-20] MEDS ORDERED: LORAZEPAM INJ 2 MG/ML VIAL IV PRN (17:00)
[2024-01-20] MEDS: BLOOD SUGAR DIAGNOSTIC 1 EACH STRIP IN SCH (17:06)
[2024-01-20] MEDS: INSULIN REGULAR, HUMAN 100 UNIT/ML 3 ML VIAL SQ PRN (17:07)
[2024-01-20 21:10] VITALS: BP 110/77; TEMP 98; O2SAT 98
[2024-01-20] MEDS: LEVETIRACETAM (250 MG) 250 MG TABLET PO SCH (21:13)
[2024-01-20] MEDS: OLANZAPINE 2.5 MG TABLET PO SCH (21:14)
[2024-01-20] MEDS: LATANOPROST EYE DROP 0.005% 2.5 ML BOTTLE OP SCH (21:27)
[2024-01-21 06:41] LABS: BASOPHILS % (AUTO) 0.2 % (0.0-2.0); EOSINOPHILS # (AUTO) 0.2 K/uL (0.0-0.7); EOSINOPHILS % (AUTO) 4.1 % (0.0-6.0); HEMATOCRIT 36 % (39-51); HEMOGLOBIN 12.1 g/dL (13.5-17.5); LYMPHOCYTES # (AUTO) 1.9 K/uL (0.8-4.8); LYMPHOCYTES % (AUTO) 34.3 % (20.0-44.0); MEAN CORPUSCULAR HEMOGLOBIN 31 PG (26.0-33.0); MEAN CORPUSCULAR HGB CONC 34 g/dl (31.0-36.0); MEAN CORPUSCULAR VOLUME 91 fL (80-96); MONOCYTES # (AUTO) 0.3 K/uL (0.1-1.30); MONOCYTES % (AUTO) 6.2 % (2.0-12.0); NEUTROPHILS % (AUTO) 55.2 % (43.0-81.0); PLATELET COUNT (AUTO) 266 K/uL (150-450); RED BLOOD CELL COUNT(AUTO) 3.93 MIL/uL (4.5-6.0); RED CELL DISTRIBUTION WIDTH 13.3 % (11.5-15.0); WHITE BLOOD COUNT (AUTO) 5.5 K/uL (4.3-11.0)
[2024-01-21 07:06] LABS: CALCIUM, SERUM 7.7 mg/dL (8.5-10.1); CARBON DIOXIDE 28 mmol/L (21-32); CHLORIDE 104 mmol/L (98-107); CREATININE 1.1 mg/dL (0.6-1.3); GLUCOSE 82 mg/dL (74-106); MAGNESIUM 1.9 mg/dL (1.8-2.4); SODIUM SERUM 138 mmol/L (136-145); UREA NITROGEN, BLOOD 14 mg/dL (7-18)
[2024-01-21 08:00] VITALS: BP 100/64; TEMP 98.1; O2SAT 100
[2024-01-21] MEDS: PANTOPRAZOLE 40 MG TABLET.DR PO SCH (09:16)
[2024-01-21] MEDS: METFORMIN 500 MG TABLET PO SCH (09:16)
[2024-01-21 20:00] VITALS: BP 118/67; TEMP 98.1; O2SAT 98
[2024-01-22 07:04] LABS: BASOPHILS % (AUTO) 0.3 % (0.0-2.0); EOSINOPHILS # (AUTO) 0.2 K/uL (0.0-0.7); EOSINOPHILS % (AUTO) 2.9 % (0.0-6.0); HEMATOCRIT 39 % (39-51); HEMOGLOBIN 13.1 g/dL (13.5-17.5); LYMPHOCYTES # (AUTO) 1.7 K/uL (0.8-4.8); MEAN CORPUSCULAR HEMOGLOBIN 31 PG (26.0-33.0); MEAN CORPUSCULAR HGB CONC 34 g/dl (31.0-36.0); MEAN CORPUSCULAR VOLUME 92 fL (80-96); MONOCYTES # (AUTO) 0.4 K/uL (0.1-1.30); MONOCYTES % (AUTO) 5.9 % (2.0-12.0); NEUTROPHILS # (AUTO) 4.5 K/uL (1.8-8.9); NEUTROPHILS % (AUTO) 65.9 % (43.0-81.0); PLATELET COUNT (AUTO) 281 K/uL (150-450); RED BLOOD CELL COUNT(AUTO) 4.22 MIL/uL (4.5-6.0); RED CELL DISTRIBUTION WIDTH 13.1 % (11.5-15.0); WHITE BLOOD COUNT (AUTO) 6.8 K/uL (4.3-11.0)
[2024-01-22 07:35] LABS: CARBON DIOXIDE 26 mmol/L (21-32); CHLORIDE 104 mmol/L (98-107); CREATININE 1.1 mg/dL (0.6-1.3); GLUCOSE 124 mg/dL (74-106); PHOSPHORUS 2.9 mg/dL (2.5-4.9); POTASSIUM 3.9 mmol/L (3.5-5.1); SODIUM SERUM 138 mmol/L (136-145); UREA NITROGEN, BLOOD 17 mg/dL (7-18)
[2024-01-22 08:00] VITALS: BP 110/67; TEMP 98.6; O2SAT 100
[2024-01-22 08:25] VITALS: BP 117/65; TEMP 98.4; O2SAT 97
[2024-01-22 08:47] LABS: MAGNESIUM 2.3 mg/dL (1.8-2.4)
[2024-01-22 20:00] VITALS: BP 117/65; TEMP 98.4; O2SAT 97
[2024-01-23 07:00] VITALS: BP 116/70; TEMP 98.8; O2SAT 98
[2024-01-23 16:00] VITALS: BP 107/68; TEMP 98.7; O2SAT 97
[2024-01-27] MEDS ORDERED: APIXABAN 5 MG TABLET PO SCH (17:00)
== END 2024-01-23 16:45 | DRG 299 ==
LOC: ER 03:18 → TRANSITION 09:07 → MED 09:26
PROVIDERS: ADMIT Nurse Practitioner Family
DX: I82.411 Acute embolism and thrombosis of right femoral vein (principal); G93.41 Metabolic encephalopathy; N39.0 Urinary tract infection, site not specified; E44.0 Moderate protein-calorie malnutrition; F02.83 Dementia in other diseases classified elsewhere, unspecified severity, with mood disturbance; E87.20 Acidosis, unspecified; E11.22 Type 2 diabetes mellitus with diabetic chronic kidney disease; N18.9 Chronic kidney disease, unspecified; I12.9 Hypertensive chronic kidney disease with stage 1 through stage 4 chronic kidney disease, or unspecified chronic kidney disease; G30.9 Alzheimer's disease, unspecified; E11.40 Type 2 diabetes mellitus with diabetic neuropathy, unspecified; F25.9 Schizoaffective disorder, unspecified; E88.09 Other disorders of plasma-protein metabolism, not elsewhere classified; G40.909 Epilepsy, unspecified, not intractable, without status epilepticus; K21.9 Gastro-esophageal reflux disease without esophagitis; F31.9 Bipolar disorder, unspecified; R53.1 Weakness; Z79.84 Long term (current) use of oral hypoglycemic drugs; Z79.899 Other long term (current) drug therapy; B96.89 Other specified bacterial agents as the cause of diseases classified elsewhere
CPT/HCPCS: 36415; 73564-TC; 80048-TC; 80053-TC; 81001; 82248-TC; 82962-TC; 83605-TC; 83735-TC; 84100-TC; 84550-TC; 85025-TC; 85730-TC; 86850-TC; 87040-TC; 93970-TC; 97110-TC; 97112-TC; 97530-TC; A4223; G0378; J0696; J1650; J1815; J7050; J7060

== ENCOUNTER 2024-02-08 22:54 | Emergency (ER) | payer MEDICARE, OTHER ==
[~2024-02-08] VITALS: Ht 175.3 cm; Wt 70.3 kg
[~2024-02-08 22:54] MED LIST changes: -LISI10TA29 PO; +MAG30ORA PO; +MAGN400O6 PO; -OLAN5TAB3 PO; -OMEG-88 PO
[2024-02-08] MEDS ORDERED: ACETAMINOPHEN 325 MG TABLET ONE (23:27)
[2024-02-08] MEDS: ACETAMINOPHEN 325 MG TABLET PO ONE (23:43)
[2024-02-09 01:32] VITALS: BP 111/65; TEMP 99.3; O2SAT 99
== END 2024-02-09 01:33 ==
LOC: ER 23:09
DX: U07.1 COVID-19 (principal); R50.9 Fever, unspecified; F03.90 Unspecified dementia, unspecified severity, without behavioral disturbance, psychotic disturbance, mood disturbance, and anxiety; G40.909 Epilepsy, unspecified, not intractable, without status epilepticus; I10 Essential (primary) hypertension; D64.9 Anemia, unspecified; K21.9 Gastro-esophageal reflux disease without esophagitis; E11.9 Type 2 diabetes mellitus without complications; Z79.1 Long term (current) use of non-steroidal anti-inflammatories (NSAID); Z79.899 Other long term (current) drug therapy; Z79.84 Long term (current) use of oral hypoglycemic drugs

== ENCOUNTER 2024-06-19 17:37 | Emergency (ER) | payer MEDICARE, OTHER ==
[~2024-06-19] VITALS: Ht 172.7 cm; Wt 70.3 kg
[2024-06-19 22:28] VITALS: BP 135/72; TEMP 98.2; O2SAT 99
== END 2024-06-19 22:29 | disposition home or self-care (01) ==
LOC: ER 17:42
DX: S09.8XXA Other specified injuries of head, initial encounter (principal); G93.49 Other encephalopathy; E11.9 Type 2 diabetes mellitus without complications; F03.90 Unspecified dementia, unspecified severity, without behavioral disturbance, psychotic disturbance, mood disturbance, and anxiety; G40.909 Epilepsy, unspecified, not intractable, without status epilepticus; I10 Essential (primary) hypertension; I67.82 Cerebral ischemia; K21.9 Gastro-esophageal reflux disease without esophagitis; Z79.899 Other long term (current) drug therapy; Z86.79 Personal history of other diseases of the circulatory system; Z87.39 Personal history of other diseases of the musculoskeletal system and connective tissue; Z86.59 Personal history of other mental and behavioral disorders; W18.30XA Fall on same level, unspecified, initial encounter; Y93.89 Activity, other specified; Y92.89 Other specified places as the place of occurrence of the external cause; Y99.8 Other external cause status
CPT/HCPCS: 70450-TC

== ENCOUNTER 2024-08-12 15:29 | Emergency (ER) | payer MEDICARE, OTHER ==
[~2024-08-12] VITALS: Ht 182.9 cm; Wt 90.7 kg
[2024-08-12 18:40] VITALS: BP 117/57; TEMP 98.3; O2SAT 97
== END 2024-08-12 19:08 | disposition home or self-care (01) ==
LOC: ER 15:34
DX: S09.90XA Unspecified injury of head, initial encounter (principal); E11.9 Type 2 diabetes mellitus without complications; F03.90 Unspecified dementia, unspecified severity, without behavioral disturbance, psychotic disturbance, mood disturbance, and anxiety; G40.909 Epilepsy, unspecified, not intractable, without status epilepticus; I10 Essential (primary) hypertension; K21.9 Gastro-esophageal reflux disease without esophagitis; Z79.899 Other long term (current) drug therapy; W18.39XA Other fall on same level, initial encounter; Y93.89 Activity, other specified; Y92.89 Other specified places as the place of occurrence of the external cause; Y99.8 Other external cause status
CPT/HCPCS: 99284; 72125; 70450; J7120; A4223

== ENCOUNTER 2024-10-01 20:29 | Emergency (ER) | payer MEDICARE, OTHER ==
[~2024-10-01] VITALS: Ht 182.9 cm; Wt 80.7 kg
[2024-10-02 01:27] VITALS: BP 127/70; TEMP 98.7; O2SAT 97
== END 2024-10-02 01:28 | disposition home or self-care (01) ==
LOC: ER 20:44
DX: S00.93XA Contusion of unspecified part of head, initial encounter (principal); I10 Essential (primary) hypertension; E11.9 Type 2 diabetes mellitus without complications; F03.90 Unspecified dementia, unspecified severity, without behavioral disturbance, psychotic disturbance, mood disturbance, and anxiety; G40.909 Epilepsy, unspecified, not intractable, without status epilepticus; Z79.899 Other long term (current) drug therapy; Z87.440 Personal history of urinary (tract) infections; W18.39XA Other fall on same level, initial encounter; Y93.89 Activity, other specified; Y92.89 Other specified places as the place of occurrence of the external cause; Y99.8 Other external cause status
CPT/HCPCS: 70450-TC; 72125-TC

== ENCOUNTER 2025-01-16 09:52 | Emergency (ER) | payer MEDICARE, OTHER ==
[~2025-01-16] VITALS: Ht 182.9 cm; Wt 73.9 kg
[2025-01-16 11:38] LABS: PLATELET COUNT (AUTO) 250 K/uL (150-450); RED BLOOD CELL COUNT(AUTO) 4.25 MIL/uL (4.5-6.0); RED CELL DISTRIBUTION WIDTH 13.5 % (11.5-15.0); WHITE BLOOD COUNT (AUTO) 6.3 K/uL (4.3-11.0)
[2025-01-16 11:46] LABS: CALCIUM, SERUM 8.8 mg/dL (8.5-10.1); CREATININE 1.1 mg/dL (0.6-1.3); SODIUM SERUM 138 mmol/L (136-145); UREA NITROGEN, BLOOD 18 mg/dL (7-18)
[2025-01-16 11:58] LABS: ASPARTATE AMINOTRANSFERASE 19 U/L (15-37); NT-PRO BNP 79 pg/mL (0-125); TOTAL PROTEIN, SERUM 6.7 g/dL (6.4-8.2)
[2025-01-16] MEDS ORDERED: APIX5TAB PO (12:21)
[2025-01-16] MEDS ORDERED: CRAN300T PO (12:21)
[2025-01-16] MEDS ORDERED: PANT40TA49 PO (12:21)
[2025-01-16] MEDS ORDERED: INSU100V3 SQ (12:21)
[2025-01-16 14:37] VITALS: BP 140/70; TEMP 98.6; O2SAT 96
== END 2025-01-16 14:45 | disposition home or self-care (01) ==
LOC: ER 10:00
DX: S40.812A Abrasion of left upper arm, initial encounter (principal); I10 Essential (primary) hypertension; E11.9 Type 2 diabetes mellitus without complications; K21.9 Gastro-esophageal reflux disease without esophagitis; R06.02 Shortness of breath; F02.80 Dementia in other diseases classified elsewhere, unspecified severity, without behavioral disturbance, psychotic disturbance, mood disturbance, and anxiety; G30.9 Alzheimer's disease, unspecified; G40.909 Epilepsy, unspecified, not intractable, without status epilepticus; Z79.01 Long term (current) use of anticoagulants; Z79.899 Other long term (current) drug therapy; Z87.440 Personal history of urinary (tract) infections; W18.30XA Fall on same level, unspecified, initial encounter; Y93.89 Activity, other specified; Y92.89 Other specified places as the place of occurrence of the external cause; Y99.8 Other external cause status
CPT/HCPCS: 36415; 70450-TC; 71045-TC; 72125-TC; 72170-TC; 73080-TC; 80048-TC; 80076-TC; 82962-TC; 83880; 84484-TC; 85025-TC